=== PATIENT | female | born 2000 | race Caucasian/White ===

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

== ENCOUNTER 2020-01-08 12:06 | Emergency (ER) | payer OTHER, SELFPAY ==
[2020-01-08 12:28] VITALS: BP 107/64; PULSE 76; RESP 16; TEMP 36.7; O2SAT 99; BMI 18.5
--- NOTE | 2020-01-08 12:41 | XR_ITS ---
PROCEDURE: XR ANKLE RT MIN 3V CLINICAL INDICATION: fall, pain COMPARISON: ANKL2 ANKLE-LT-2 VIEWS from 10/03/2008 ANKR3 ANKLE-RT-3 VIEWS from 10/03/2008 XR FOOT RT MIN 3V from 01/08/2020 FINDINGS: No fracture, dislocation, lytic change, or blastic change evident. No significant degenerative change IMPRESSION: No acute findings. Dictated by: Yunior Mora MD 01/08/2020 13:35 Electronically signed by Yunior Mora MD in [place] 01/08/2020 13:35
--- NOTE | 2020-01-08 13:39 | HMH.EDLOEX ---
ED Disposition Clinical Impression: Ankle sprain and strain Disposition: Home, Self-Care Condition on Discharge: Good Instructions: Sprain Referrals: Heidi Regalado MD [Primary Care Provider] - - Critical Care Critical Care Time: No Attestation: On 01/08/20, the high probability of a clinically significant, sudden or life threatening deterioration of the following system(s) required my full and direct attention, intervention and personal management. The time I documented below is in addition to time spent performing reported procedures but includes the following listed in this critical care notation. Medical Decision Making - Medical Records Medical records reviewed: Yes: I reviewed the patient's medical records. - Erik Inquiry Pt receiving controlled substance: No Vital Signs: 01/08/20 12:28 Temperature 98.1 F Temperature Source Oral Pulse Rate [Left Radial] 76 Respiratory Rate 16 Blood Pressure [Left Arm] 107/64 L Blood Pressure Mean [Left Arm] 78 Blood Pressure Source [Left Arm] Automatic Cuff Blood Pressure Position [Left Arm] Sitting 02 Sat by Pulse Oximetry 99 Oxygen Delivery Method Room Air - Radiology Data #1 Image(s): Ankle Image Reviewed: Yes I reviewed the patient's radiology image w/the ED provider Preliminary Findings: Normal/NAD Lower Extremity Injury HPI - General Chief Complaint: Extremity Injury, Lower Stated Complaint: AO 01/06 fell injury to right ankle Time Seen by Provider: 01/08/20 13:00 Mode of Arrival: Wheelchair Source of Information: Patient Limitations: No Limitations Description of Symptoms (Recalled from ER Triage Doc. by RN): Pt c/o R ankle pain, pt reports she fell off a the side of step lastnight. - History of Present Illness complaint: ankle injury Onset (ago): day(s) Injury: Right: ankle, foot (Complaints of pain at the arch of the foot) Type of Injury: inversion Place: home Severity: moderate Severity scale (1-10): 4 Relieving factors: nothing Exacerbating factors: nothing Context: fall Associated symptoms: tingling, able to partially bear weight Other symptoms: none Treatments prior to arrival: cold therapy - Related Data Allergies Allergy/AdvReac Type Severity Reaction Status Date / Time No Known Allergies Allergy Verified 05/18/19 11:41 [facility] History - Hepatitis A Screen Drug use history?: No High risk sexual behaviors?: No History of sexually transmitted infection?: No Currently employed?: No Childcare worker?: No Do you have indoor plumbing?: Yes Do you have electricity?: Yes Attestation statement:: This patient has been screened for Hepatitis A risk factors. Medical History: Reports:: Renal Disease Denies:: Diabetes Mellitus Type 1, Diabetes Mellitus Type 2 Other Medical History: Reports: Other Comment: Rare Hip Disease Other Surgeries: Yes: Other (biopsy, kidney as a child) Amputation: No Fractures: No Comment: Kidney Bx - Social History Smoking Status: Never smoker Alcohol Intake: never Occupational Status: other Family Hx:: Diabetes (mom, grandmother), Asthma (sister) ROS Obtained: Yes All systems reviewed & no additional complaints - Constitutional Constitutional: Reports system reviewed and no additional complaints, except as docu - Eyes Eyes: Reports system reviewed and no additional complaints, except as docu - ENT Ears, Nose, Mouth, and Throat: Reports system reviewed and no additional complaints, except as docu - Cardiovascular Cardiovascular: Reports system reviewed and no additional complaints, except as docu - Respiratory Respiratory: Yes system reviewed and no additional complaints, except as docu - Gastrointestinal Gastrointestingal: Reports: system reviewed and no additional complaints, except as docu - Genitourinary Male Genitourinary: Reports system reviewed and no additional complaints, except as docu Female Genitourinary: Reports system reviewed and no additional complaints, e
[2020-01-08 14:17] VITALS: BP 122/67; PULSE 76; RESP 18; TEMP 36.7; O2SAT 98
== END 2020-01-08 14:17 | disposition home or self-care (01) ==
PROVIDERS: Emergency Provider Family Medicine; PCP Family Medicine
DX: S93.401A Sprain of unspecified ligament of right ankle, initial encounter (principal); W10.9XXA Fall (on) (from) unspecified stairs and steps, initial encounter; Y92.018 Other place in single-family (private) house as the place of occurrence of the external cause
CPT/HCPCS: 29515; 73610; 73630; 99282; 99283

== ENCOUNTER → 2020-02-28 12:14 | Outpatient (CLI) | payer OTHER, SELFPAY ==
[2020-02-28 13:11] LABS: Basophils # 0.1 K/mm3 (0-0.2); Basophils % 0.5 % (0.1-2.0); Eosinophils # 0.4 K/mm3 (0.0-0.4); Eosinophils % 3.3 % (0.1-12.0); Hematocrit 40.4 % (37.0-47.0); Lymphocytes # 2.6 K/mm3 (0.7-4.5); Lymphocytes % 24.8 % (10-50); Mean Corpuscular HGB Conc 34.6 g/dL (31.8-35.4); Mean Corpuscular Hemoglobin 32.3 pg (27.0-31.2); Mean Corpuscular Volume 93.2 fl (81-99); Mean Platelet Volume 7.8 fl (7.4-10.4); Monocytes # 0.5 K/mm3 (0.1-1.0); Monocytes % 4.9 % (1.7-9.3); Neutrophils % 66.4 % (37.0-80.0); Platelet Count 218 K/mm3 (142-424); Red Blood Count 4.33 M/mm3 (4.20-5.40); Red Cell Distribution Width 12.5 % (11.5-17.5); White Blood Count 10.5 K/mm3 (4.5-13.0)
[2020-02-28 13:20] LABS: Strep Scrn Group A (Rapid) Negative (Negative)
[2020-02-29 14:24] LABS: Covid-19 Nasal PCR Sendout Lex Not Detected
== END ==
PROVIDERS: PCP Family Medicine; Visit Provider Family Medicine
DX: Z20.828 Contact with and (suspected) exposure to other viral communicable diseases (principal)
CPT/HCPCS: 36415; 85025; 87430; U0004

== ENCOUNTER → 2020-03-15 15:27 | Outpatient (CLI) | payer OTHER, SELFPAY ==
[2020-03-15 17:14] LABS: Microscopic, Urine URINE MICROSCOPIC (MICROSCOPIC)
[2020-03-15 17:18] LABS: Basophils % 0.4 % (0.1-2.0); Eosinophils % 0.2 % (0.1-12.0); Hematocrit 39.5 % (37.0-47.0); Hemoglobin 13.6 g/dL (12.2-16.2); Lymphocytes # 1.5 K/mm3 (0.7-4.5); Lymphocytes % 18.5 % (10-50); Mean Corpuscular HGB Conc 34.6 g/dL (31.8-35.4); Mean Corpuscular Hemoglobin 31.2 pg (27.0-31.2); Mean Corpuscular Volume 90.3 fl (81-99); Mean Platelet Volume 7.5 fl (7.4-10.4); Monocytes # 0.7 K/mm3 (0.1-1.0); Monocytes % 8.9 % (1.7-9.3); Neutrophils % 72.1 % (37.0-80.0); Platelet Count 156 K/mm3 (142-424); Red Blood Count 4.37 M/mm3 (4.20-5.40); Red Cell Distribution Width 12.1 % (11.5-17.5); White Blood Count 8.3 K/mm3 (4.5-13.0)
[2020-03-15 17:22] LABS: Appearance,Urine CLEAR (Clear); Bilirubin,Urine Negative (Negative); Blood, Urine Negative (Negative); Color,Urine YELLOW (Yellow); Glucose,Urine (UA) Negative (Negative); Ketones,Urine Negative (Negative); Leukocyte Esterase,Urine Negative (Negative); Nitrate,Urine Negative (Negative); PH,Urine 6.5 (5.0-8.5); Protein,Urine TRACE (Negative)
[2020-03-15 17:25] LABS: Bacteria,Urine 1+ /lpf
[2020-03-15 17:47] LABS: Strep Scrn Group A (Rapid) Negative (Negative)
[2020-03-17 13:19] LABS: Covid-19 Nasal PCR Sendout Lex Not Detected
== END ==
PROVIDERS: PCP Family Medicine; Visit Provider Physician Assistant
DX: Z20.828 Contact with and (suspected) exposure to other viral communicable diseases (principal); N28.9 Disorder of kidney and ureter, unspecified; R94.4 Abnormal results of kidney function studies; K57.92 Diverticulitis of intestine, part unspecified, without perforation or abscess without bleeding
CPT/HCPCS: 81001; 85025; 87430; U0004

== ENCOUNTER → 2020-04-02 15:59 | Outpatient (CLI) | payer OTHER, SELFPAY ==
[2020-04-02 17:35] LABS: Basophils # 0.1 K/mm3 (0-0.2); Basophils % 0.9 % (0.1-2.0); Eosinophils # 0.1 K/mm3 (0.0-0.4); Eosinophils % 1.6 % (0.1-12.0); Hematocrit 38.6 % (37.0-47.0); Hemoglobin 12.6 g/dL (12.2-16.2); Lymphocytes # 2.2 K/mm3 (0.7-4.5); Lymphocytes % 33.4 % (10-50); Mean Corpuscular HGB Conc 32.6 g/dL (31.8-35.4); Mean Corpuscular Hemoglobin 30.7 pg (27.0-31.2); Mean Corpuscular Volume 94.1 fl (81-99); Mean Platelet Volume 7.9 fl (7.4-10.4); Monocytes # 0.3 K/mm3 (0.1-1.0); Neutrophils % 59.1 % (37.0-80.0); Platelet Count 263 K/mm3 (142-424); Red Blood Count 4.11 M/mm3 (4.20-5.40); Red Cell Distribution Width 12.1 % (11.5-17.5); White Blood Count 6.7 K/mm3 (4.5-13.0)
[2020-04-03 18:06] LABS: Microscopic, Urine URINE MICROSCOPIC (MICROSCOPIC)
[2020-04-03 18:46] LABS: Appearance,Urine CLEAR (Clear); Bilirubin,Urine Negative (Negative); Blood, Urine TRACE-I (Negative); Color,Urine YELLOW (Yellow); Glucose,Urine (UA) Negative (Negative); Ketones,Urine Negative (Negative); Leukocyte Esterase,Urine 1+ (Negative); Nitrate,Urine Negative (Negative); PH,Urine 6.5 (5.0-8.5); Protein,Urine Negative (Negative); Specific Gravity, Urine 1.015 (1.005-1.030); Urobilinogen,Urine 0.2 EU/dl (0.2)
[2020-04-03 19:41] LABS: Bacteria,Urine 1+ /lpf
== END ==
PROVIDERS: Visit Provider Nurse Practitioner Family
DX: R50.9 Fever, unspecified (principal)
CPT/HCPCS: 36415; 81001; 85025; 87077; 87086; 87088

== ENCOUNTER → 2020-05-25 15:20 | Outpatient (CLI) | payer OTHER, SELFPAY | PROVIDERS: Visit Provider Obstetrics & Gynecology | DX: N39.0 Urinary tract infection, site not specified (principal) | CPT/HCPCS: 87086; 87088; 87186 ==

== ENCOUNTER → 2020-11-01 15:53 | Outpatient (CLI) | payer OTHER, SELFPAY ==
[2020-11-01 16:32] LABS: Basophils # 0.1 K/mm3 (0-0.2); Basophils % 0.8 % (0.1-2.0); Eosinophils # 0.3 K/mm3 (0.0-0.4); Eosinophils % 2.9 % (0.1-12.0); Hematocrit 39.8 % (37.0-47.0); Hemoglobin 13.3 g/dL (12.2-16.2); Lymphocytes # 1.3 K/mm3 (0.7-4.5); Lymphocytes % 14.4 % (10-50); Mean Corpuscular HGB Conc 33.4 g/dL (31.8-35.4); Mean Corpuscular Hemoglobin 30.9 pg (27.0-31.2); Mean Corpuscular Volume 92.5 fl (81-99); Monocytes # 0.7 K/mm3 (0.1-1.0); Monocytes % 7.9 % (1.7-9.3); Neutrophils # 6.4 K/mm3 (1.8-7.8); Neutrophils % 74.1 % (37.0-80.0); Platelet Count 199 K/mm3 (142-424); Red Cell Distribution Width 12.1 % (11.5-17.5); White Blood Count 8.6 K/mm3 (4.5-13.0)
[2020-11-01 16:44] LABS: Strep Scrn Group A (Rapid) Negative (Negative)
== END ==
PROVIDERS: PCP Family Medicine; Visit Provider Physician Assistant
DX: Z20.822 Contact with and (suspected) exposure to COVID-19 (principal); J02.9 Acute pharyngitis, unspecified
CPT/HCPCS: 36415; 85025; 87430; U0003

== ENCOUNTER 2020-12-19 09:00 | Emergency (ER) | payer BC, SELFPAY ==
[2020-12-19 09:03] VITALS: BP 126/70; PULSE 73; RESP 14; TEMP 36.9; O2SAT 100; BMI 18.7
--- NOTE | 2020-12-19 09:15 | HMH.EDUTC ---
[facility] [place] Disposition Clinical Impression: Strep throat Disposition: Home, Self-Care Condition on Discharge: Good Instructions: DI for Strep Throat, Strep Throat Additional Instructions: *Monitor Temp, Over the counter Motrin or Tylenol as directed/as needed Tylenol every 4 hours and Motrin every 6 hours (as long as your family doctor has told you that you can take it) for fever or pain. and straight to ER if unable to lower temp less than 101.0 after medication given *Warm salt water gargles may help to soothe the throat *Throat Lozenges *Warm fluids like tea with honey may help to soothe the throat *Sleep elevated *Humidifier/Vaporizer *If you did not take Penicillin shot or was unable to, start taking antibiotic immediately and make sure that you take it for the FULL length of time although you should start to feel better in 24-48 hours *change toothbrush and toothpaste 24-48 hours after starting to take antibiotics so you do not reinfect yourself Monitor Temp. Tylenol and/or Ibuprofen as needed. ER if fever is no less than 101 despite alternating Tylenol and Ibuprofen * Encourage fluids, water, Gatorade, powerade, pedialyte if infant/toddler/or child *Cold fluids, popsicles and ice cream may feel good on his throat Follow up IMMEDIATELY for new or worsening symptoms or no Noticeable improvement over the next 48-72 hours. 911 for difficulty breathing or swallowing Prescriptions: Brompheniramine/Pseudoephed/Dm [Bromfed Dm Cough Syrup] 5 - 10 ml PO Q46H PRN #200 ml PRN Reason: Cough Transmission Status: Pending to [facility] Penicillin V Potassium 500 mg PO BID 10 Days #20 tab Transmission Status: Pending to [facility] Referrals: Heidi Regalado MD [Primary Care Provider] - As needed Forms: Work/School Release Time of Disposition: 09:21 Medical Decision Making - Erik Inquiry Pt receiving controlled substance: No Erik was queried for this patient: No Vital Signs: 12/19/20 09:03 Temperature 98.5 F Temperature Source Oral Pulse Rate [Right] 73 Respiratory Rate 14 Blood Pressure [Right Arm] 126/70 Blood Pressure Mean [Right Arm] 88 02 Sat by Pulse Oximetry 100 Oxygen Delivery Method Room Air - Lab Data Lab results reviewed: Yes: I reviewed the patient's lab results. [facility] [place] HPI - General Stated complaint: possible strep Time Seen by Provider: 12/19/20 09:15 Mode of Arrival: Ambulatory Source of Information: Patient Limitations: No Limitations Description of Symptoms (Recalled from Triage Doc. by RN): pt states she has a sore throat, blisters on her right tonsil, and a cough. HEENT Symptoms (Recalled from RN notes): Yes (sore throat and blisters on right tonsil) Resp Symptoms (Recalled from RN notes): No Skin Symptoms (Recalled from RN notes): No MS Symptoms (Recalled from RN notes): No Functional Status (Recalled from RN notes): na - History of Present Illness Provider Complaint: Patient states that she gets strep often and she has been having sore irritated throat and noticed she had some blisters on her tonsils on the right side and cough States this morning her throat was hurting worse so she came in after work to get checked - Related Data Previous Rx's Medication Instructions Recorded ciprofloxacin HCl 250 mg tablet 250 mg PO BID 5 Days #10 tab 05/25/20 Brompheniramine/Pseudoephed/Dm 5 - 10 ml PO Q46H PRN #200 ml 12/19/20 [Bromfed Dm Cough Syrup] Penicillin V Potassium 500 mg PO BID 10 Days #20 tab 12/19/20 Allergies Allergy/AdvReac Type Severity Reaction Status Date / Time No Known Allergies Allergy Verified 05/25/20 09:41 - Worker's Comp Is this a Worker's Comp case?: No [facility] History - Hepatitis A Screen Drug use history?: No High risk sexual behaviors?: No History of sexually transmitted infection?: No Currently employed?: No Childcare worker?: No Do you have indoor plumbing?: Yes Do you have electricity?: Yes Attes
[2020-12-19 09:22] VITALS: BP 126/70; PULSE 73; RESP 14; TEMP 36.9
[2020-12-19 09:42] LABS: UTC Strep Screen (Rapid) Positive (Negative)
== END 2020-12-19 09:25 | disposition home or self-care (01) ==
PROVIDERS: Emergency Provider Nurse Practitioner; PCP Family Medicine
DX: J02.0 Streptococcal pharyngitis (principal)
CPT/HCPCS: 87880; 99202; G0463

== ENCOUNTER 2021-03-30 09:21 | Emergency (ER) | payer BC, SELFPAY ==
[2021-03-30 09:45] VITALS: BP 113/77; PULSE 104; RESP 18; TEMP 37; O2SAT 97; BMI 19.1
--- NOTE | 2021-03-30 10:08 | HMH.EDUTC ---
[facility] [place] Clinical Impression: Exposure to COVID-19 virus Disposition: Home, Self-Care Condition on Discharge: Good Instructions: Preventing the Spread of Coronavirus Discharge Instructions Additional Instructions: Please continue to isolate for the remainder of 7 days from quarantine. If negative, may return to work on Thursday. Referrals: Heidi Regalado MD [Primary Care Provider] - Time of Disposition: 10:09 Medical Decision Making - Erik Inquiry Pt receiving controlled substance: No Vital Signs: 03/30/21 09:45 Temperature 98.6 F Temperature Source Oral Pulse Rate [Right Brachial] 104 H Respiratory Rate 18 Blood Pressure [Right Arm] 113/77 Blood Pressure Mean [Right Arm] 89 Blood Pressure Source [Right Arm] Automatic Cuff Blood Pressure Position [Right Arm] Sitting 02 Sat by Pulse Oximetry 97 Oxygen Delivery Method Room Air Orders (Tests/Meds): ORDERS Category Date Time Status Covid-19 Nasal PCR ([facility]) Routine Lab 03/30/21 10:03 Ordered [facility] [place] HPI - General Stated complaint: exposure to covid Time Seen by Provider: 03/30/21 10:08 Mode of Arrival: Ambulatory Source of Information: Patient Limitations: No Limitations Description of Symptoms (Recalled from Triage Doc. by RN): COVID TEST D/T EXPOSURE ON THURSDAY HEENT Symptoms (Recalled from RN notes): No Resp Symptoms (Recalled from RN notes): No Skin Symptoms (Recalled from RN notes): No MS Symptoms (Recalled from RN notes): No Functional Status (Recalled from RN notes): WNL - History of Present Illness Provider Complaint: Patient was exposed to COVID19 5 days ago. No symptoms at this time. Onset (ago): day(s) (5) Relieving factors: none Exacerbating factors: none Associated symptoms: denies other symptoms Treatments prior to arrival: none - Related Data Home Medications Medication Instructions Recorded Confirmed etonogestrel 68 mg subdermal SUBDERMAL 12/21/20 implant Previous Rx's Medication Instructions Recorded Penicillin V Potassium 500 mg PO BID 10 Days #20 tab 12/19/20 Allergies Allergy/AdvReac Type Severity Reaction Status Date / Time No Known Allergies Allergy Verified 12/21/20 09:29 - Worker's Comp Is this a Worker's Comp case?: No [facility] History - Hepatitis A Screen Drug use history?: No High risk sexual behaviors?: No History of sexually transmitted infection?: No Currently employed?: No Childcare worker?: No Do you have indoor plumbing?: Yes Do you have electricity?: Yes Attestation statement:: This patient has been screened for Hepatitis A risk factors. I have reviewed the patient's past medical history: Yes Medical History: Reports:: Renal Disease Denies:: Diabetes Mellitus Type 1, Diabetes Mellitus Type 2 Other Medical History: Reports: Other Comment: Rare Hip Disease Other Surgeries: Yes: Other Amputation: No Fractures: No Comment: Kidney Bx - Social History Smoking Status: Current every day smoker Alcohol Intake: never Substance Use Type: denies use Occupational Status: employed Family Hx:: Diabetes, Asthma ROS Obtained: Yes All systems reviewed & no additional complaints Physical Exam - General General appearance: alert, in no apparent distress - Eye Eye exam: Present: PERRL - ENT ENT exam: Present: normal oropharynx, TM's normal bilaterally - Neck Neck exam: Present: normal inspection. Absent: lymphadenopathy - Chest Chest inspection: Present: normal inspection, symmetric chest wall rise - Respiratory Respiratory exam: Present: normal lung sounds bilaterally - Cardiovascular Cardiovascular exam: Present: regular rate, normal rhythm - Neurological Exam Neurological exam: Present: alert, oriented X3 - Psychiatric Psychiatric exam: Present: normal affect, normal mood - Skin Skin exam: Present: warm, dry, intact
[2021-03-30 10:09] VITALS: BP 113/77; PULSE 104; RESP 18; TEMP 37; O2SAT 97
== END 2021-03-30 10:18 | disposition home or self-care (01) ==
PROVIDERS: Emergency Provider Physician Assistant; PCP Family Medicine
DX: Z20.822 Contact with and (suspected) exposure to COVID-19 (principal)
CPT/HCPCS: 99202; C9803; G0463; U0003; U0005

== ENCOUNTER 2021-05-26 10:49 | Emergency (ER) | payer BC, SELFPAY ==
[2021-05-26 11:52] VITALS: BP 120/70; PULSE 70; RESP 18; TEMP 36.9; O2SAT 100; BMI 18.7
[2021-05-26 11:53] LABS: Apearance,Urine Clear (Clear); Color,Urine Yellow (Yellow); PH,Urine 5.5 (5.0-8.5)
[2021-05-26 11:54] LABS: Glucose,Urine (UA) Negative (Negative); Ketones,Urine Negative (Negative); Protein,Urine Negative (Negative)
[2021-05-26 11:55] LABS: Bilirubin,Urine Negative (Negative); Blood, Urine Negative (Negative); Urobilinogen,Urine 0.2 EU/dl (0.2)
--- NOTE | 2021-05-26 11:55 | HMH.EDUTC ---
[facility] [place] Disposition Clinical Impression: Athletes foot Qualifiers: Laterality: unspecified laterality Qualified Code(s): B35.3 - Tinea pedis UTI (urinary tract infection) Qualifiers: Urinary tract infection type: site unspecified Hematuria presence: with hematuria Qualified Code(s): N39.0 - Urinary tract infection, site not specified Disposition: Home, Self-Care Condition on Discharge: Good Instructions: DI for Urinary Tract Infection (UTI), DI for Athlete's Foot, Clotrimazole Topical Additional Instructions: Apply the clotrimazole to the affected area on your foot. Take the bactrim as directed. Follow up with your primary care physician. Follow up with podiatry if your symptoms continue. I put in a referral but you would need to call and make an appointment. Her office number will be on this paperwork. GO TO THE ER FOR ANY WORSENING SYMPTOMS OR CONCERNS. Prescriptions: Sulfamethoxazole/Trimethoprim [Bactrim DS tablet] 1 each PO BID 7 Days #14 tab Transmission Status: Received by [facility] Clotrimazole 1 applicatio TP BID 14 Days #15 gm Transmission Status: Received by [facility] Referrals: Heidi Regalado MD [Primary Care Provider] - Time of Disposition: 12:14 Medical Decision Making - Medical Records Medical records reviewed: No: I reviewed the patient's medical records. - Erik Inquiry Pt receiving controlled substance: No Vital Signs: 05/26/21 11:52 05/26/21 12:18 Temperature 98.4 F 98.4 F Temperature Source Oral Pulse Rate 70 Pulse Rate [Right Brachial] 70 Respiratory Rate 18 70 H Blood Pressure 120/70 Blood Pressure [Right Arm] 120/70 Blood Pressure Mean [Right Arm] 86 Blood Pressure Source [Right Arm] Automatic Cuff Blood Pressure Position [Right Arm] Sitting 02 Sat by Pulse Oximetry 100 Oxygen Delivery Method Room Air - Lab Data Lab results reviewed: Yes: I reviewed the patient's lab results. Lab Results 05/26/21 11:48: Urine Color Yellow, Urine Appearance Clear, Urine pH 5.5, Ur Specific [place] 1.010, Urine Protein Negative, Urine Glucose (UA) Negative, Urine Ketones Negative, Urine Blood Negative, Urine Nitrate Negative, Urine Bilirubin Negative, Urine Urobilinogen 0.2, Ur Leukocyte Esterase Negative Orders (Tests/Meds): ORDERS Category Date Time Status Urine Culture Stat Micro 05/25/21 12:[address] [facility] [place] HPI - General Stated complaint: blister/rash lt foot, possible kidney infection Time Seen by Provider: 05/26/21 11:55 - History of Present Illness Provider Complaint: She c/o irritation between her toes on her right foot. She has itching and the skin has broke open in places. She also c/o dysuria for the past 5 days. She gets uti's occasionally and she feels like that is what's going on now. - Related Data Home Medications Medication Instructions Recorded Confirmed etonogestrel 68 mg subdermal SUBDERMAL 12/21/20 implant Previous Rx's Medication Instructions Recorded Penicillin V Potassium 500 mg PO BID 10 Days #20 tab 12/19/20 Clotrimazole 1 applicatio TP BID 14 Days #15 gm 05/26/21 Sulfamethoxazole/Trimethoprim 1 each PO BID 7 Days #14 tab 05/26/21 [Bactrim DS tablet] Allergies Allergy/AdvReac Type Severity Reaction Status Date / Time No Known Allergies Allergy Verified 12/21/20 09:29 [facility] [place] History - Hepatitis A Screen Attestation statement:: This patient has been screened for Hepatitis A risk factors. I have reviewed the patient's past medical history: Yes Medical History: Reports:: Renal Disease Denies:: Diabetes Mellitus Type 1, Diabetes Mellitus Type 2 Other Medical History: Reports: Other Comment: Rare Hip Disease Other Surgeries: Yes: Other Amputation: No Fractures: No Comment: Kidney Bx - Social History Smoking Status: Current every day smoker Alcohol Intake: never Substance Use Type: denies use Occupational Status: employed Family Hx:: Diabetes, Asthma ROS Ob
[2021-05-26 11:56] LABS: UTC Leukocyte Esterase,Urine Negative (Negative); UTC Nitrate,Urine Negative (Negative)
[2021-05-26 12:18] VITALS: BP 120/70; PULSE 70; RESP 70; TEMP 36.9
== END 2021-05-26 12:18 | disposition home or self-care (01) ==
PROVIDERS: Emergency Provider Nurse Practitioner Family; PCP Family Medicine
DX: B35.3 Tinea pedis (principal); N39.0 Urinary tract infection, site not specified; F17.210 Nicotine dependence, cigarettes, uncomplicated
CPT/HCPCS: 81003; 87086; 99202; G0463

== ENCOUNTER 2021-06-01 18:46 | Emergency (ER) | payer BC, SELFPAY ==
[2021-06-01 18:50] VITALS: BP 121/67; PULSE 91; RESP 20; TEMP 36.8; O2SAT 97; BMI 20.2
--- NOTE | 2021-06-01 19:13 | HMH.EDUTC ---
[facility] [place] Disposition Clinical Impression: Dental infection Disposition: Home, Self-Care Condition on Discharge: Good Instructions: DI for Tooth Abscess, Tooth Abscess, DI for Fever (Symptom) -- Adult Additional Instructions: take medication as prescribed Follow up with Dentist for further evaluation and treatment Return if needed Over the counter Motrin and/or Tylenol for fever and pain Straight to ER if any life threatening symptoms Prescriptions: cephALEXin [cephALEXin 500mg capsule*] 500 mg PO TID 7 Days #21 cap Transmission Status: Pending to [facility] Referrals: Heidi Regalado MD [Primary Care Provider] - As needed Forms: Work/School Release Time of Disposition: 19:32 Medical Decision Making - Erik Inquiry Pt receiving controlled substance: No Erik was queried for this patient: No Vital Signs: 06/01/21 18:50 Temperature 98.3 F Temperature Source Oral Pulse Rate [Left Brachial] 91 H Respiratory Rate 20 Blood Pressure [Left Arm] 121/67 Blood Pressure Mean [Left Arm] 85 Blood Pressure Source [Left Arm] Automatic Cuff Blood Pressure Position [Left Arm] Sitting 02 Sat by Pulse Oximetry 97 Oxygen Delivery Method Room Air [facility] [place] HPI - General Stated complaint: fever, toothache, nausea Time Seen by Provider: 06/01/21 19:13 Mode of Arrival: Ambulatory Source of Information: Patient Limitations: No Limitations Description of Symptoms (Recalled from Triage Doc. by RN): PATIENT C/O HEADACHE, FEVER, AND RIGHT SIDE TOOTHACHE THAT STARTED LAST NIGHT HEENT Symptoms (Recalled from RN notes): Yes Resp Symptoms (Recalled from RN notes): No Skin Symptoms (Recalled from RN notes): No MS Symptoms (Recalled from RN notes): No Functional Status (Recalled from RN notes): WNL - History of Present Illness Provider Complaint: Patient state that she has been having pain in her tooth on the right lower back tooth for several days and thinks she is getting infected States that she has been having a little fever States that she has been on Bactrim for her feet but she is almost out and today she had a fever and work is making her get a COVID test before she can return - Related Data Home Medications Medication Instructions Recorded Confirmed etonogestrel 68 mg subdermal SUBDERMAL 12/21/20 implant Previous Rx's Medication Instructions Recorded Penicillin V Potassium 500 mg PO BID 10 Days #20 tab 12/19/20 Clotrimazole 1 applicatio TP BID 14 Days #15 gm 05/26/21 Sulfamethoxazole/Trimethoprim 1 each PO BID 7 Days #14 tab 05/26/21 [Bactrim DS tablet] cephALEXin [cephALEXin 500mg 500 mg PO TID 7 Days #21 cap 06/01/21 capsule*] Allergies Allergy/AdvReac Type Severity Reaction Status Date / Time No Known Allergies Allergy Verified 12/21/20 09:29 - Worker's Comp Is this a Worker's Comp case?: No [facility] History - Hepatitis A Screen Drug use history?: No High risk sexual behaviors?: No History of sexually transmitted infection?: No Currently employed?: No Childcare worker?: No Do you have indoor plumbing?: Yes Do you have electricity?: Yes Attestation statement:: This patient has been screened for Hepatitis A risk factors. I have reviewed the patient's past medical history: Yes Medical History: Reports:: Renal Disease Denies:: Diabetes Mellitus Type 1, Diabetes Mellitus Type 2 Other Medical History: Reports: Other Comment: Rare Hip Disease Other Surgeries: Yes: Other Amputation: No Fractures: No Comment: Kidney Bx - Social History Smoking Status: Current every day smoker Alcohol Intake: never Substance Use Type: denies use Occupational Status: other Family Hx:: Diabetes, Asthma ROS Obtained: Yes All systems reviewed & no additional complaints, Yes Systems reviewed as appropriate & no additional complaints - Constitutional Constitutional: Reports system reviewed and no additional complaints, except as docu, Reports fever(s), Reports headache(s) - ENT Ears,
[2021-06-01 19:34] VITALS: BP 121/67; PULSE 91; RESP 20; TEMP 36.8; O2SAT 97
== END 2021-06-01 19:45 | disposition home or self-care (01) ==
PROVIDERS: Emergency Provider Nurse Practitioner; PCP Family Medicine
DX: K04.7 Periapical abscess without sinus (principal)
CPT/HCPCS: 99202; C9803; G0463; U0003; U0005

== ENCOUNTER → 2021-08-20 10:53 | Outpatient (CLI) | payer BC, SELFPAY ==
[2021-08-21 07:12] LABS: Covid-19 Nasal PCR Sendout Lex NOT DETECTED
== END ==
PROVIDERS: PCP Family Medicine; Visit Provider Nurse Practitioner
DX: Z20.822 Contact with and (suspected) exposure to COVID-19 (principal)
CPT/HCPCS: C9803; U0004; U0005

== ENCOUNTER → 2021-08-22 10:05 | Outpatient (CLI) | payer BC, SELFPAY ==
[2021-08-22 10:40] LABS: Microscopic, Urine URINE MICROSCOPIC (MICROSCOPIC)
[2021-08-22 10:48] LABS: Appearance,Urine CLEAR (Clear); Bilirubin,Urine Negative (Negative); Blood, Urine Negative (Negative); Color,Urine YELLOW (Yellow); Glucose,Urine (UA) Negative (Negative); Ketones,Urine Negative (Negative); Leukocyte Esterase,Urine Negative (Negative); Nitrate,Urine Negative (Negative); Protein,Urine 2+ (Negative); Specific Gravity, Urine 1.025 (1.005-1.030); Urobilinogen,Urine 0.2 EU/dl (0.2)
[2021-08-22 10:49] LABS: Basophils % 0.6 % (0.1-2.0); Eosinophils # 0.1 K/mm3 (0.0-0.4); Hematocrit 41.3 % (37.0-47.0); Hemoglobin 14.1 g/dL (12.2-16.2); Lymphocytes # 0.8 K/mm3 (0.7-4.5); Lymphocytes % 13.6 % (10-50); Mean Corpuscular Hemoglobin 31.2 pg (27.0-31.2); Mean Corpuscular Volume 91.7 fl (81-99); Mean Platelet Volume 7.7 fl (7.4-10.4); Monocytes # 0.4 K/mm3 (0.1-1.0); Monocytes % 7.4 % (1.7-9.3); Neutrophils # 4.4 K/mm3 (1.8-7.8); Neutrophils % 77.3 % (37.0-80.0); Platelet Count 225 K/mm3 (142-424); Red Blood Count 4.51 M/mm3 (4.20-5.40); White Blood Count 5.7 K/mm3 (4.5-13.0)
[2021-08-22 10:53] LABS: Strep Scrn Group A (Rapid) Negative (Negative)
[2021-08-22 11:24] LABS: Bacteria,Urine Trace /lpf; Mucus,Urine 1+ /lpf
[2021-08-22 11:29] LABS: Chloride 103 mmol/L (98-107); Potassium 4.1 mmoL/L (3.5-5.1); Sodium 136 mmol/L (136-145)
[2021-08-22 11:31] LABS: Alanine Aminotransferase 21 U/L (12-78); Aspartate Amino Transferase 30 U/L (14-36); Blood Urea Nitrogen 6 mg/dl (7-17); Estimated Glomerular Filt Rate 107 ml/min (>60); GFR (African American) 129 ML/MIN (>60)
[2021-08-22 11:32] LABS: Albumin Level 4.6 g/dl (3.5-5.0); Alkaline Phosphatase 85 U/L (38-126); Anion Gap 10.1 mEq/L (5-15); Bilirubin,Total 0.3 mg/dl (0.2-1.3); Calcium 8.4 mg/dl (8.4-10.2); Carbon Dioxide 27 mmol/L (22.0-30.0); Globulin 2.3 g/dL (1.3-3.2); Glucose 78 mg/dl (74-100); Total Protein,Serum 6.9 g/dl (6.3-8.2)
== END ==
PROVIDERS: PCP Family Medicine; Visit Provider Physician Assistant
DX: U07.1 COVID-19 (principal); J02.9 Acute pharyngitis, unspecified
CPT/HCPCS: 36415; 80053; 81001; 85025; 87430; C9803; U0003; U0005

== ENCOUNTER → 2021-10-11 13:47 | Outpatient (CLI) | payer BC, SELFPAY ==
--- NOTE | 2021-10-11 13:50 | XR_ITS ---
FINAL REPORT CLINICAL HISTORY: LT MEDIAL GREAT TOE PAIN FINDINGS: LEFT GREAT TOE Three views of the left great toe were obtained. There is no acute fracture or dislocation. The joint spaces are intact. There is no soft tissue abnormality. IMPRESSION: No acute fracture. Reviewed, Interpreted and Dictated by Floyd Browning III, MD Transcribed by Trupti Eisenberg Authenticated by Floyd Browning III, MD on 10/11/2021 04:03:29 PM [facility]
== END ==
PROVIDERS: PCP Family Medicine; Visit Provider Physician Assistant
DX: M79.675 Pain in left toe(s) (principal)
CPT/HCPCS: 73660

== ENCOUNTER 2021-12-01 01:24 | Emergency (ER) | payer BC, SELFPAY ==
[2021-12-01 01:38] VITALS: BP 136/79; PULSE 110; RESP 18; TEMP 36.7; O2SAT 100; BMI 21.4
--- NOTE | 2021-12-01 01:52 | HMH.EDUPEXT ---
ED Disposition Clinical Impression: Tenosynovitis Disposition: Home, Self-Care Condition on Discharge: Good Instructions: DI for Tenosynovitis Additional Instructions: wear splint and use meds and see pcp for follow up Prescriptions: predniSONE [Prednisone 20mg Tab] 20 mg PO BID #10 tab Transmission Status: Pending to [facility] Referrals: Heidi Regalado MD [Primary Care Provider] - - Critical Care Critical Care Time: No Attestation: On 12/01/21, the high probability of a clinically significant, sudden or life threatening deterioration of the following system(s) required my full and direct attention, intervention and personal management. The time I documented below is in addition to time spent performing reported procedures but includes the following listed in this critical care notation. Medical Decision Making - Medical Records Medical records reviewed: Yes: I reviewed the patient's medical records. - Erik Inquiry Pt receiving controlled substance: No Vital Signs: 12/01/21 01:38 Temperature 98.1 F Temperature Source Oral Pulse Rate [Apical] 110 H Respiratory Rate 18 Blood Pressure [Right Arm] 136/79 Blood Pressure Mean [Right Arm] 98 Blood Pressure Source [Right Arm] Automatic Cuff Blood Pressure Position [Right Arm] Sitting 02 Sat by Pulse Oximetry 100 Oxygen Delivery Method Room Air - Lab Data Lab results reviewed: Yes: I reviewed the patient's lab results. Orders (Tests/Meds): ED MEDICATIONS Generic Name Dose Route Start Last Admin Trade Name Freq PRN Reason Stop Dose Admin Prednisone 40 mg 12/01/21 01:51 Prednisone 20mg Tab PO 12/01/21 01:52 ONCE ONE ORDERS Category Date Time Status XR forearm RT 2V Stat Exams 12/01/21 01:45 Stop Req XR hand RT 2V Stat Exams 12/01/21 01:45 Stop Req XR wrist RT min 3V Stat Exams 12/01/21 01:44 Stop Req Medical Decision Narrative: hx and exam consistent with tenosynovitis Upper Extremity HPI - General Chief Complaint: Extremity Injury, Upper Stated Complaint: Right wrist pain Time Seen by Provider: 12/01/21 01:53 Mode of Arrival: Ambulatory Source of Information: Patient, Medical Record Limitations: No Limitations Description of Symptoms (Recalled from ER Triage Doc. by RN): Patient states that she has been having right wrist pain with swelling since Thursday. States the pain came on gradually without known injury. Descrbies the pain as a stabbing/aching that hurts when she moves her wrist. - History of Present Illness HPI narrative: progressive rt wrist pain and swelling over the last few dys w/o trauma MD complaint: injury to: right, wrist Onset (ago): day(s) Other Extremity Injury: Right: wrist Handedness: right Severity: moderate Associated symptoms: denies other symptoms - Related Data Home Medications Medication Instructions Recorded Confirmed etonogestrel 68 mg subdermal 68 mg SUBDERMAL DAILY 12/21/20 12/01/21 implant Previous Rx's Medication Instructions Recorded predniSONE [Prednisone 20mg 20 mg PO BID #10 tab 12/01/21 Tab] Allergies Allergy/AdvReac Type Severity Reaction Status Date / Time ibuprofen AdvReac Verified 12/01/21 01:49 [facility] History - Hepatitis A Screen Attestation statement:: This patient has been screened for Hepatitis A risk factors. I have reviewed the patient's past medical history: Yes Medical History: Reports:: Renal Disease Denies:: Diabetes Mellitus Type 1, Diabetes Mellitus Type 2 Other Medical History: Reports: Other Comment: Rare Hip Disease Other Surgeries: Yes: Other Amputation: No Fractures: No Comment: Kidney Bx - Social History Smoking Status: Current every day smoker Alcohol Intake: never Substance Use Type: denies use Occupational Status: other Family Hx:: Diabetes, Asthma ROS Obtained: Yes All systems reviewed & no additional complaints - Constitutional Constitutional: Denies fever(s)
[2021-12-01 02:04] VITALS: BP 135/75; PULSE 93; RESP 18; TEMP 36.8; O2SAT 99
== END 2021-12-01 02:07 | disposition home or self-care (01) ==
PROVIDERS: Emergency Provider Emergency Medicine; PCP Family Medicine
DX: M65.831 Other synovitis and tenosynovitis, right forearm (principal); F17.210 Nicotine dependence, cigarettes, uncomplicated
CPT/HCPCS: 99283

== ENCOUNTER 2021-12-13 14:09 | Emergency (ER) | payer BC, SELFPAY ==
[2021-12-13 14:10] VITALS: BP 120/86; PULSE 89; RESP 19; TEMP 36.9; O2SAT 98; BMI 19.3
--- NOTE | 2021-12-13 14:42 | HMH.EDUTC ---
[facility] [place] Disposition Clinical Impression: Otitis media Qualifiers: Otitis media type: suppurative Chronicity: acute Laterality: bilateral Recurrence: non-recurrent Spontaneous tympanic membrane rupture: without spontaneous rupture Qualified Code(s): H66.003 - Acute suppurative otitis media without spontaneous rupture of ear drum, bilateral Left otitis externa Qualifiers: Otitis externa type: unspecified type Chronicity: acute Qualified Code(s): H60.502 - Unspecified acute noninfective otitis externa, left ear Disposition: Home, Self-Care Condition on Discharge: Good Instructions: How to Instill Ear Drops, Otitis Externa, Middle Ear Infection Additional Instructions: Drink plenty of fluids. Take tylenol or ibuprofen for pain or fever. Use the medications as directed. Follow up with your regular doctor. GO TO THE ER FOR ANY WORSENING SYMPTOMS Follow up with your primary care physician in around 1 week to have the ear rechecked. Prescriptions: Amoxicillin [Amoxicillin 875MG Tab] 875 mg PO Q12H #20 tab Transmission Status: Received by [facility] Ciprofloxacin HCl/Dexameth [Cipro 0.3%-Dex 0.1% Otic Susp 7.5mL] 2 drops OT BID 7 Days #1 ml Transmission Status: Received by [facility] predniSONE [Deltasone 10mg tablet] 10 mg PO BID 3 Days #6 tab Transmission Status: Received by [facility] Referrals: Heidi Regalado MD [Primary Care Provider] - Forms: Work/School Release Time of Disposition: 14:47 Medical Decision Making - Medical Records Medical records reviewed: No: I reviewed the patient's medical records. - Erik Inquiry Pt receiving controlled substance: No Vital Signs: 12/13/21 14:10 12/13/21 14:50 Temperature 98.4 F 98.4 F Temperature Source Oral Pulse Rate 89 Pulse Rate [Right Brachial] 89 Respiratory Rate 19 19 Blood Pressure 120/86 Blood Pressure [Right Arm] 120/86 Blood Pressure Mean [Right Arm] 97 Blood Pressure Source [Right Arm] Automatic Cuff Blood Pressure Position [Right Arm] Sitting 02 Sat by Pulse Oximetry 98 Oxygen Delivery Method Room Air [facility] [place] HPI - General Stated complaint: lt ear pain Time Seen by Provider: 12/13/21 14:42 Mode of Arrival: Ambulatory Source of Information: Patient Limitations: No Limitations Description of Symptoms (Recalled from Triage Doc. by RN): PATIENT C/O LEFT EAR PAIN SINCE THIS MORNING HEENT Symptoms (Recalled from RN notes): Yes Resp Symptoms (Recalled from RN notes): No Skin Symptoms (Recalled from RN notes): No MS Symptoms (Recalled from RN notes): No Functional Status (Recalled from RN notes): WNL - History of Present Illness Provider Complaint: She has had left ear pain for the past 2 days. - Related Data Home Medications Medication Instructions Recorded Confirmed etonogestrel 68 mg subdermal 68 mg SUBDERMAL ONCE 12/21/20 12/13/21 implant Previous Rx's Medication Instructions Recorded Amoxicillin [Amoxicillin 875MG 875 mg PO Q12H #20 tab 12/13/21 Tab] Ciprofloxacin HCl/Dexameth [Cipro 2 drops OT BID 7 Days #1 ml 12/13/21 0.3%-Dex 0.1% Otic Susp 7.5mL] predniSONE [Deltasone 10mg tablet] 10 mg PO BID 3 Days #6 tab 12/13/21 Allergies Allergy/AdvReac Type Severity Reaction Status Date / Time ibuprofen AdvReac Verified 12/01/21 01:49 - Worker's Comp Is this a Worker's Comp case?: No [facility] [place] History - Hepatitis A Screen Attestation statement:: This patient has been screened for Hepatitis A risk factors. Medical History: Reports:: Renal Disease Denies:: Diabetes Mellitus Type 1, Diabetes Mellitus Type 2 Other Medical History: Reports: Other Comment: Rare Hip Disease Other Surgeries: Yes: Other Amputation: No Fractures: No Comment: Kidney Bx - Social History Smoking Status: Current every day smoker Alcohol Intake: never Substance Use Type: denies use Occupational Status: other Family Hx:: Diabetes, Asthma ROS Ob
[2021-12-13 14:50] VITALS: BP 120/86; PULSE 89; RESP 19; TEMP 36.9; O2SAT 98
== END 2021-12-13 14:54 | disposition home or self-care (01) ==
PROVIDERS: Emergency Provider Nurse Practitioner Family; PCP Family Medicine
DX: H66.003 Acute suppurative otitis media without spontaneous rupture of ear drum, bilateral (principal); H60.502 Unspecified acute noninfective otitis externa, left ear
CPT/HCPCS: 99212; G0463

== ENCOUNTER → 2022-05-06 16:12 | Outpatient (CLI) | payer BC, SELFPAY ==
[2022-05-06 18:39] LABS: HCG,Quantitative 500 mIU/ml (0-5.42)
== END ==
PROVIDERS: PCP Family Medicine; Visit Provider Obstetrics & Gynecology
DX: N92.6 Irregular menstruation, unspecified (principal)
CPT/HCPCS: 36415; 84702

== ENCOUNTER → 2022-05-13 16:49 | Outpatient (CLI) | payer BC, SELFPAY ==
[2022-05-13 18:19] LABS: Basophils # 0.1 K/mm3 (0-0.2); Basophils % 0.4 % (0.1-2.0); Eosinophils % 0.1 % (0.1-12.0); Hematocrit 38.1 % (37.0-47.0); Hemoglobin 12.7 g/dL (12.2-16.2); Lymphocytes # 1.1 K/mm3 (0.7-4.5); MANUAL DIFFERENTIAL MANUAL DIFFERENTIAL (MANUAL DIFF); Mean Corpuscular HGB Conc 33.2 g/dL (31.8-35.4); Mean Corpuscular Hemoglobin 30.6 pg (27.0-31.2); Mean Corpuscular Volume 92.2 fl (81-99); Mean Platelet Volume 8.1 fl (7.4-10.4); Monocytes # 0.9 K/mm3 (0.1-1.0); Monocytes % 5.1 % (1.7-9.3); Neutrophils % 88.4 % (37.0-80.0); Platelet Count 321 K/mm3 (142-424); Red Blood Count 4.13 M/mm3 (4.20-5.40); White Blood Count 18.1 K/mm3 (4.8-10.8)
[2022-05-13 19:20] LABS: Eosinophils % 1 % (0-3); Lymphocytes % 9 % (10-50); Monocytes % 2 % (2-9); Neutrophils % 88 % (42-76); Platelet Estimate Normal; RBC Morphology Normal; Total Cells Counted 100
[2022-05-13 23:08] LABS: Strep Scrn Group A (Rapid) Negative (Negative)
== END ==
PROVIDERS: PCP Family Medicine; Visit Provider Nurse Practitioner Family
DX: Z20.822 Contact with and (suspected) exposure to COVID-19 (principal)
CPT/HCPCS: 36415; 85007; 85025; 87275; 87276; 87430; C9803; U0003; U0005

== ENCOUNTER → 2022-06-03 12:56 | Outpatient (CLI) | payer BC, SELFPAY ==
[2022-06-03 13:16] LABS: Coronavirus 19, PCR Not Detected (NotDetected); Influenza A, PCR Not Detected (NotDetected); Influenza B, PCR Not Detected (NotDetected)
[2022-06-03 13:22] LABS: Basophils # 0.1 K/mm3 (0-0.2); Basophils % 1.2 % (0.1-2.0); Eosinophils # 0.3 K/mm3 (0.0-0.4); Hematocrit 41.2 % (37.0-47.0); Hemoglobin 13.7 g/dL (12.2-16.2); Lymphocytes # 1.9 K/mm3 (0.7-4.5); Lymphocytes % 18.9 % (10-50); Mean Corpuscular HGB Conc 33.2 g/dL (31.8-35.4); Mean Corpuscular Hemoglobin 30.6 pg (27.0-31.2); Mean Corpuscular Volume 92.1 fl (81-99); Mean Platelet Volume 7.7 fl (7.4-10.4); Monocytes % 9.7 % (1.7-9.3); Neutrophils # 6.9 K/mm3 (1.8-7.8); Neutrophils % 67.1 % (37.0-80.0); Platelet Count 330 K/mm3 (142-424); Red Blood Count 4.47 M/mm3 (4.20-5.40); Red Cell Distribution Width 12.5 % (11.5-17.5); White Blood Count 10.2 K/mm3 (4.8-10.8)
[2022-06-03 13:50] LABS: Strep Scrn Group A (Rapid) Negative (Negative)
== END ==
PROVIDERS: PCP Family Medicine; Visit Provider Nurse Practitioner Family
DX: Z20.822 Contact with and (suspected) exposure to COVID-19 (principal)
CPT/HCPCS: 36415; 85025; 87430; C9803; U0003; U0005

== ENCOUNTER → 2022-06-03 17:15 | Outpatient (CLI) | payer BC, SELFPAY ==
[2022-06-03 17:42] LABS: Barbiturates Screen,Urine Negative ng/ml (<200)
[2022-06-03 17:43] LABS: Benzodiazepines Screen,Urine Negative ng/ml (<200)
[2022-06-03 17:44] LABS: Cannabinoid Screen,Urine Negative ng/ml (<50); Cocaine Screen,Urine Negative ng/ml (<300)
[2022-06-03 17:45] LABS: Methadone Screen,Urine Negative ng/ml (<300)
[2022-06-03 17:46] LABS: Opiate Screen,Urine Negative ng/ml (<300)
[2022-06-03 17:49] LABS: Phencyclidine Screen,Urine Negative ng/ml (<25)
[2022-06-03 17:52] LABS: Amphetamine/Metha Screen,Urine Negative ng/ml (<1000)
== END ==
PROVIDERS: Visit Provider Obstetrics & Gynecology
DX: Z34.90 Encounter for supervision of normal pregnancy, unspecified, unspecified trimester (principal)
CPT/HCPCS: 80305; 87086

== ENCOUNTER → 2022-06-24 13:55 | Outpatient (CLI) | payer BC, SELFPAY ==
[2022-06-24 15:29] LABS: Basophils # 0.1 K/mm3 (0-0.2); Basophils % 0.6 % (0.1-2.0); Eosinophils # 0.1 K/mm3 (0.0-0.4); Eosinophils % 0.6 % (0.1-12.0); Hematocrit 37.3 % (37.0-47.0); Hemoglobin 12.4 g/dL (12.2-16.2); Lymphocytes # 2.7 K/mm3 (0.7-4.5); Lymphocytes % 19.9 % (10-50); Mean Corpuscular HGB Conc 33.1 g/dL (31.8-35.4); Mean Corpuscular Hemoglobin 30.2 pg (27.0-31.2); Mean Corpuscular Volume 91.1 fl (81-99); Mean Platelet Volume 8.3 fl (7.4-10.4); Monocytes # 0.7 K/mm3 (0.1-1.0); Monocytes % 5.4 % (1.7-9.3); Neutrophils % 73.5 % (37.0-80.0); Platelet Count 349 K/mm3 (142-424); Red Cell Distribution Width 12.6 % (11.5-17.5); White Blood Count 13.6 K/mm3 (4.8-10.8)
[2022-06-26 07:05] LABS: Rubella Antibodies, IgG <0.90 index (Immune >0.99)
[2022-06-26 09:32] LABS: Rapid Plasma Reagin Ab Titer Non Reactive (NonRea<1:1)
[2022-07-02 09:13] LABS: HIV Screen 4th Generation wRfx NON REACTIVE; Hepatitis B Surface Antigen NEGATIVE
[2022-07-02 09:14] LABS: Hepatitis C Antibody <0.1
== END ==
PROVIDERS: PCP Psychiatry & Neurology Sleep Medicine; Visit Provider Obstetrics & Gynecology
DX: Z34.90 Encounter for supervision of normal pregnancy, unspecified, unspecified trimester (principal)
CPT/HCPCS: 36415; 85025; 86592; 86703; 86762; 86850; 87340; 87380; G0432

== ENCOUNTER → 2022-06-30 09:30 | Outpatient (CLI) | payer BC, SELFPAY ==
[2022-06-30 09:47] LABS: Total Volume,Urine 750 mL (600-1600)
[2022-06-30 09:53] LABS: Total Protein 24 Hour,Urine 60 mg/24 hr (40-90)
== END ==
PROVIDERS: PCP Family Medicine; Visit Provider Obstetrics & Gynecology
DX: Z34.90 Encounter for supervision of normal pregnancy, unspecified, unspecified trimester (principal)
CPT/HCPCS: 84155

== ENCOUNTER → 2022-09-09 14:54 | Outpatient (CLI) | payer BC, SELFPAY ==
--- NOTE | 2022-09-09 14:54 | US_ITS ---
FINAL REPORT CLINICAL HISTORY: 20 week anatomy scan FINDINGS: There is a single live intrauterine gestation. Presentation is cephalic. The cervix is closed and measures 3.1. Placenta is posterior, grade 1. movement is noted. Heart rate is noted at 152 beats per minute. Three-vessel cord with satisfactory umbilical cord insertion. Four-chamber heart is noted. SPINE: No anomalies identified. AMNIOTIC FLUID: Appropriate amount. MEASUREMENTS: ULTRASOUND AGE: 22 weeks 0 days. GESTATION AGE: 22 weeks 0 days. ESTIMATED WEIGHT: 471 g GROWTH PERCENTILE: 46 % BPD: 5.28 cm corresponding to 22 weeks 1 day. OFD: 6.78 cm corresponding to 22 weeks 2 days. HC: 19.09 cm corresponding to 21 weeks 3 days. AC: 16.91 cm corresponding to 22 weeks 0 days. FL: 3.86 cm corresponding to 22 weeks 3 days. CEREBELLUM: 2.21 cm corresponding to 22 weeks 1 day. HUMERUS: 3.55 cm corresponding to 22 weeks 2 days. HC/AC: 1.13 CI: 78% FL/BPD: 73% FL/AC: 23% IMPRESSION: Single living IUP with an ultrasound age of 22 weeks 0 days. Reviewed, Interpreted and Dictated by Floyd Browning III, MD Transcribed by Anabela Moya Authenticated and [facility]
== END ==
PROVIDERS: PCP Family Medicine; Visit Provider Obstetrics & Gynecology
DX: Z34.90 Encounter for supervision of normal pregnancy, unspecified, unspecified trimester (principal); Z3A.20 20 weeks gestation of pregnancy
CPT/HCPCS: 76811

== ENCOUNTER → 2022-10-16 08:37 | Outpatient (CLI) | payer BC, SELFPAY ==
[2022-10-16 08:55] LABS: Basophils % 0.2 % (0.1-2.0); Eosinophils # 0.2 K/mm3 (0.0-0.4); Eosinophils % 1.6 % (0.1-12.0); Hematocrit 37.9 % (37.0-47.0); Hemoglobin 12.3 g/dL (12.2-16.2); Lymphocytes # 2.1 K/mm3 (0.7-4.5); Mean Corpuscular HGB Conc 32.5 g/dL (31.8-35.4); Mean Corpuscular Hemoglobin 30.8 pg (27.0-31.2); Mean Corpuscular Volume 94.8 fl (81-99); Mean Platelet Volume 7.9 fl (7.4-10.4); Monocytes # 0.5 K/mm3 (0.1-1.0); Monocytes % 4.2 % (1.7-9.3); Neutrophils # 9.4 K/mm3 (1.8-7.8); Neutrophils % 76.9 % (37.0-80.0); Platelet Count 281 K/mm3 (142-424); Red Cell Distribution Width 12.9 % (11.5-17.5); White Blood Count 12.2 K/mm3 (4.8-10.8)
[2022-10-16 09:02] LABS: Creatinine,Urine Random 71 mg/dL (Not Estab.)
[2022-10-16 09:05] LABS: Microalbumin < 6.000 mg/L (0-16.7)
[2022-10-16 09:08] LABS: Glucose,Fasting 82 mg/dl (74-100)
[2022-10-16 09:47] LABS: Alanine Aminotransferase 13 U/L (12-78); Albumin Level 3.5 g/dl (3.5-5.0); Albumin/Globulin Ratio 1.5 (1.1-1.8); Alkaline Phosphatase 112 U/L (38-126); Anion Gap 7.6 mEq/L (5-15); Aspartate Amino Transferase 21 U/L (14-36); Bilirubin,Total 0.5 mg/dl (0.2-1.3); Blood Urea Nitrogen 4 mg/dl (7-17); Calcium 8.3 mg/dl (8.4-10.2); Carbon Dioxide 24 mmol/L (22.0-30.0); Chloride 106 mmol/L (98-107); Estimated Glomerular Filt Rate 156 ml/min (>60); GFR (African American) 188 ML/MIN (>60); Globulin 2.4 g/dL (1.3-3.2); Glucose 75 mg/dl (74-100); Potassium 3.6 mmoL/L (3.5-5.1); Sodium 134 mmol/L (136-145); Total Protein,Serum 5.9 g/dl (6.3-8.2)
[2022-10-16 10:36] LABS: Glucose 1 Hour 113 mg/dL (74-100)
== END ==
PROVIDERS: PCP Family Medicine; Visit Provider Obstetrics & Gynecology
DX: N28.9 Disorder of kidney and ureter, unspecified (principal); Z3A.22 22 weeks gestation of pregnancy
CPT/HCPCS: 36415; 80053; 82043; 82570; 82951; 85025

== ENCOUNTER 2022-11-17 01:29 | Outpatient (CLI) | payer BC, SELFPAY ==
[2022-11-17 01:36] VITALS: BP 129/73; PULSE 92; RESP 18; TEMP 36.9; O2SAT 98; BMI 27.3
[2022-11-17 01:57] LABS: Microscopic, Urine URINE MICROSCOPIC (MICROSCOPIC)
[2022-11-17 01:58] LABS: Appearance,Urine CLEAR (Clear); Bilirubin,Urine Negative (Negative); Blood, Urine 1+ (Negative); Color,Urine YELLOW (Yellow); Glucose,Urine (UA) Negative (Negative); Ketones,Urine Negative (Negative); Leukocyte Esterase,Urine Negative (Negative); Nitrate,Urine Negative (Negative); Protein,Urine Negative (Negative); Specific Gravity, Urine 1.015 (1.005-1.030); Urobilinogen,Urine 0.2 EU/dl (0.2)
[2022-11-17 02:10] LABS: Barbiturates Screen,Urine Negative ng/ml (<200)
[2022-11-17 02:11] LABS: Amphetamine/Metha Screen,Urine Negative ng/ml (<1000); Bacteria,Urine Trace /lpf; Benzodiazepines Screen,Urine Negative ng/ml (<200); WBC,Urine Occasional #/hpf (0-3)
[2022-11-17 02:12] LABS: Cannabinoid Screen,Urine Negative ng/ml (<50)
[2022-11-17 02:13] LABS: Cocaine Screen,Urine Negative ng/ml (<300); Methadone Screen,Urine Negative ng/ml (<300)
[2022-11-17 02:14] LABS: Opiate Screen,Urine Negative ng/ml (<300)
[2022-11-17 02:15] LABS: Phencyclidine Screen,Urine Negative ng/ml (<25)
== END 2022-11-17 02:20 | disposition home or self-care (01) ==
LOC: OBOUT 01:30 → OB 01:31
PROVIDERS: PCP Family Medicine; Visit Provider Obstetrics & Gynecology
DX: O26.893 Other specified pregnancy related conditions, third trimester (principal); Z3A.31 31 weeks gestation of pregnancy; R10.30 Lower abdominal pain, unspecified; R10.2 Pelvic and perineal pain
CPT/HCPCS: 59025; 80305; 81001

== ENCOUNTER → 2022-11-20 07:57 | Outpatient (CLI) | payer BC, SELFPAY ==
--- NOTE | 2022-11-20 08:03 | US_ITS ---
FINAL REPORT CLINICAL HISTORY: OB BPP/Growth with KEEGAN SD Ratio-SGA FINDINGS: There is a single live intrauterine gestation. Presentation is cephalic. The cervix is closed and measures 3.4 cm. There is funneling of the cervix noted with a small amount of endocervical fluid. Placenta is posterior, grade 2. Cardiac activity is confirmed at 146 bpm. Fetus is active. Three-vessel cord with satisfactory umbilical cord insertion. Four-chamber heart is noted. ABDOMEN: Both kidneys are unremarkable. Stomach is unremarkable. KEEGAN: 11.2, normal UMBILICAL ARTERY SD RATIO: 2.65 MEASUREMENTS: ULTRASOUND AGE: 32 weeks 1 day. GESTATION AGE: 32 weeks 2 days. ESTIMATED WEIGHT: 1728 g GROWTH PERCENTILE: 13% BPD: 8.3 cm corresponding to 33 weeks 3 days. OFD: 10.3 cm corresponding to 32 weeks 3 days. HC: 29.5 cm corresponding to 32 weeks 5 days. AC: 26.12 cm corresponding to 30 weeks 2 days. FL: 6.1 cm corresponding to 32 weeks 0 days. HC/AC: 1.13 CI: 80% FL/BPD: 74 % FL/AC: 34% BREATHIN MOVEMENT: 2 TONE: 2 FLUID VOLUME: 2 BPP SCORE: 8 IMPRESSION: Single living IUP with an ultrasound age of 32 weeks 1 day. BPP SCORE: 8/8 Reviewed, Interpreted and Dictated by Floyd Browning III, MD Transcribed by Renee Dorsey Authenticated and . [facility]
== END ==
PROVIDERS: PCP Family Medicine; Visit Provider Obstetrics & Gynecology
DX: O36.5990 Maternal care for other known or suspected poor fetal growth, unspecified trimester, not applicable or unspecified (principal); Z3A.32 32 weeks gestation of pregnancy
CPT/HCPCS: 76816; 76819; 76820

== ENCOUNTER 2022-12-13 05:39 | Outpatient (CLI) | payer BC, SELFPAY ==
[2022-12-13 05:55] VITALS: BMI 28.3
[2022-12-13 05:56] VITALS: BP 126/76; PULSE 87; RESP 17; TEMP 36.6; O2SAT 98; BMI 28.3
[2022-12-13 08:19] LABS: Barbiturates Screen,Urine Negative ng/ml (<200)
[2022-12-13 08:20] LABS: Amphetamine/Metha Screen,Urine Negative ng/ml (<1000); Appearance,Urine CLEAR (Clear); Benzodiazepines Screen,Urine Negative ng/ml (<200); Bilirubin,Urine Negative (Negative); Blood, Urine Negative (Negative); Color,Urine YELLOW (Yellow); Glucose,Urine (UA) Negative (Negative); Ketones,Urine Negative (Negative); Leukocyte Esterase,Urine Negative (Negative); Microscopic, Urine URINE MICROSCOPIC (MICROSCOPIC); Nitrate,Urine Negative (Negative); Protein,Urine Negative (Negative); Urobilinogen,Urine 0.2 EU/dl (0.2)
[2022-12-13 08:21] LABS: Cannabinoid Screen,Urine Negative ng/ml (<50); Cocaine Screen,Urine Negative ng/ml (<300)
[2022-12-13 08:22] LABS: Methadone Screen,Urine Negative ng/ml (<300)
[2022-12-13 08:23] LABS: Opiate Screen,Urine Negative ng/ml (<300); Phencyclidine Screen,Urine Negative ng/ml (<25)
[2022-12-13 09:06] LABS: Bacteria,Urine Trace /lpf; WBC,Urine Occasional #/hpf (0-3)
== END 2022-12-13 08:03 | disposition home or self-care (01) ==
LOC: OBOUT 05:39 → OB 05:40
PROVIDERS: PCP Family Medicine; Visit Provider Obstetrics & Gynecology
DX: O26.893 Other specified pregnancy related conditions, third trimester (principal); Z3A.35 35 weeks gestation of pregnancy; M54.50 Low back pain, unspecified
CPT/HCPCS: 59025; 80305; 81001; G0463

== ENCOUNTER → 2022-12-20 08:57 | Outpatient (CLI) | payer BC, SELFPAY | PROVIDERS: Visit Provider Obstetrics & Gynecology | DX: Z34.93 Encounter for supervision of normal pregnancy, unspecified, third trimester (principal); Z3A.37 37 weeks gestation of pregnancy | CPT/HCPCS: 86403 ==

== ENCOUNTER 2022-12-27 19:49 | Outpatient (CLI) | payer BC, SELFPAY ==
[2022-12-27 20:00] VITALS: RESP 18; TEMP 36.6; BMI 28.8
[2022-12-27 20:16] VITALS: BMI 28.7
[2022-12-27 20:21] LABS: Microscopic, Urine URINE MICROSCOPIC (MICROSCOPIC)
[2022-12-27 20:25] LABS: Appearance,Urine SL CLOUDY (Clear); Bilirubin,Urine Negative (Negative); Blood, Urine Negative (Negative); Color,Urine YELLOW (Yellow); Glucose,Urine (UA) Negative (Negative); Ketones,Urine Negative (Negative); Leukocyte Esterase,Urine Negative (Negative); Nitrate,Urine Negative (Negative); PH,Urine 5.5 (5.0-8.5); Protein,Urine Negative (Negative); Specific Gravity, Urine 1.025 (1.005-1.030); Urobilinogen,Urine 0.2 EU/dl (0.2)
[2022-12-27 20:33] LABS: Fetal Membrane Rupture (Rapid) Negative (Negative)
[2022-12-27 20:35] LABS: Bacteria,Urine 2+ /lpf; RBC,Urine Occasional #/hpf (0-3); WBC,Urine 20-50 #/hpf (0-3)
[2022-12-27 20:38] LABS: Barbiturates Screen,Urine Negative ng/ml (<200); Benzodiazepines Screen,Urine Negative ng/ml (<200)
[2022-12-27 20:39] LABS: Amphetamine/Metha Screen,Urine Negative ng/ml (<1000); Cannabinoid Screen,Urine Negative ng/ml (<50)
[2022-12-27 20:40] LABS: Cocaine Screen,Urine Negative ng/ml (<300)
[2022-12-27 20:41] LABS: Methadone Screen,Urine Negative ng/ml (<300); Opiate Screen,Urine Negative ng/ml (<300)
[2022-12-27 20:42] LABS: Phencyclidine Screen,Urine Negative ng/ml (<25)
== END 2022-12-27 21:45 | disposition home or self-care (01) ==
LOC: OBOUT 19:51 → OB 19:52
PROVIDERS: PCP Family Medicine; Visit Provider Nurse Practitioner Obstetrics & Gynecology
DX: O26.893 Other specified pregnancy related conditions, third trimester (principal); Z3A.37 37 weeks gestation of pregnancy; M54.50 Low back pain, unspecified
CPT/HCPCS: 59025; 80305; 81001; 84112; 87086; 96365; G0463

== ENCOUNTER 2023-01-06 06:55 | Inpatient (IN) | payer BC, SELFPAY ==
[2023-01-06 05:50] VITALS: BP 115/91; PULSE 92; RESP 18; TEMP 36.8; O2SAT 98; BMI 28.7
[2023-01-06 06:07] VITALS: BMI 63.3
[2023-01-06 06:20] LABS: Microscopic, Urine URINE MICROSCOPIC (MICROSCOPIC)
[2023-01-06 06:22] LABS: Appearance,Urine CLEAR (Clear); Bilirubin,Urine Negative (Negative); Blood, Urine 2+ (Negative); Color,Urine YELLOW (Yellow); Glucose,Urine (UA) Negative (Negative); Ketones,Urine Negative (Negative); Leukocyte Esterase,Urine Negative (Negative); Nitrate,Urine Negative (Negative); PH,Urine 5.5 (5.0-8.5); Protein,Urine TRACE (Negative); Specific Gravity, Urine 1.015 (1.005-1.030); Urobilinogen,Urine 0.2 EU/dl (0.2)
[2023-01-06 06:29] LABS: Fetal Membrane Rupture (Rapid) Positive (Negative)
[2023-01-06 06:33] LABS: Amphetamine/Metha Screen,Urine Negative ng/ml (<1000); Benzodiazepines Screen,Urine Negative ng/ml (<200)
[2023-01-06 06:34] VITALS: BMI 28.7
[2023-01-06 06:34] LABS: Barbiturates Screen,Urine Negative ng/ml (<200)
[2023-01-06 06:35] LABS: Cannabinoid Screen,Urine Negative ng/ml (<50); Cocaine Screen,Urine Negative ng/ml (<300)
[2023-01-06 06:36] LABS: Methadone Screen,Urine Negative ng/ml (<300)
[2023-01-06 06:37] LABS: Opiate Screen,Urine Negative ng/ml (<300); Phencyclidine Screen,Urine Negative ng/ml (<25)
[2023-01-06 06:49] LABS: WBC,Urine Occasional #/hpf (0-3)
[2023-01-06 06:50] LABS: Squamous Epithelial Cell,Urine Occasional #/hpf (0-5)
[2023-01-06 07:51] LABS: Coronavirus 19, PCR Not Detected (NotDetected); Influenza A, PCR Not Detected (NotDetected); Influenza B, PCR Not Detected (NotDetected)
[2023-01-06 08:03] LABS: Basophils % 0.2 % (0.1-2.0); Eosinophils # 0.1 K/mm3 (0.0-0.4); Eosinophils % 0.8 % (0.1-12.0); Hematocrit 34.2 % (37.0-47.0); Hemoglobin 10.8 g/dL (12.2-16.2); Lymphocytes % 11.7 % (10-50); Mean Corpuscular HGB Conc 31.6 g/dL (31.8-35.4); Mean Corpuscular Hemoglobin 26.9 pg (27.0-31.2); Mean Platelet Volume 8.2 fl (7.4-10.4); Monocytes # 0.9 K/mm3 (0.1-1.0); Monocytes % 5.5 % (1.7-9.3); Neutrophils # 13.9 K/mm3 (1.8-7.8); Neutrophils % 81.8 % (37.0-80.0); Platelet Count 351 K/mm3 (142-424); Red Blood Count 4.03 M/mm3 (4.20-5.40); Red Cell Distribution Width 13.3 % (11.5-17.5)
[2023-01-06 08:05] LABS: MANUAL DIFFERENTIAL MANUAL DIFFERENTIAL (MANUAL DIFF)
--- NOTE | 2023-01-06 08:46 | HMH.PHAINT1 ---
Pharmacy Intervention Comments: MEDICATION RECONCILIATION COMPLETE USING LIST FROM RECENT OB OFFICE VISIT AND EXTERNAL PHARMACY FILL HISTORY.
[2023-01-06 08:58] LABS: Lymphocytes % 16 % (10-50); Monocytes % 6 % (2-9); Neutrophils % 78 % (42-76); Platelet Estimate Normal; RBC Morphology Normal; Total Cells Counted 100
--- NOTE | 2023-01-06 10:21 | EXP.OB.APHP ---
OB - H&P: HPI Antepartum History of Present Illness Chief complaint: Leakage of fluid History of present illness: Ms Sun Robles is a 22 yo at 39w0d who presents to [facility] Labor and Delivery with complaint of leakage of fluid that started at 0450. She states contractions started just after leakage and have increased in frequency and intensity. She is feeling baby move. Denies vaginal bleeding. No headaches or vision changes. Admits to lower extremity swelling. She has had good care. History of Present Criteria for establishing EDC:: based on 1st trimester US only care: good care Ultrasounds: normal mid trimester US Obstetrical complications: none Medical complications: other (nephropathy) Labs Blood type: O (+) positive Rubella: nonimmune RPR/VDRL: nonreactive GBS status: negative HBsAG: negative [facility] Disclaimer: The information contained in this section may have been updated after the patient was seen, as this information can be updated by other users. 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 Normal result of biopsy of kidney Spontaneous rupture of membranes Family History Other Alcoholism Asthma Coronary artery disease Diabetes Heart attack Hypertension Kidney disease Stroke Social History Smoking Status: Former smoker alcohol intake: never substance use type: denies use current occupational status: employed Travel in the last 8 weeks: None Review of Systems Review of Systems Review of systems:: pertinent systems reviewed and negative unless documented below *Gastrointestinal Comments: + contractions, leakage of fluid *Musculoskeletal Comments: + bilateral lower extremity swelling Meds Home Medications and Allergies Home Medications Medication Instructions Recorded Confirmed Type omeprazole 20 mg capsule,delayed 20 mg PO DAILY Heartburn 01/06/23 01/06/23 History release ondansetron 8 mg disintegrating 8 mg PO Q12H Nausea 01/06/23 01/06/23 History tablet polyethylene glycol 3350 17 17 g PO DAILY Constipation 01/06/23 01/06/23 History gram/dose oral powder (Miralax) vits no.126-ferrous fum 1 tab PO DAILY Supplement 01/06/23 01/06/23 History 28 mg iron-folic acid 800 mcg tablet (Classic ) New Prescriptions to Start Prescriptions: Allergies Allergy/AdvReac Type Severity Reaction Status Date / Time ibuprofen AdvReac Verified 01/01/23 11:50 OB - H&P: Exam Physical Exam Vital signs: Temp Pulse Resp BP Pulse Ox 98.3 F 92 H 18 115/91 H 98 01/06/23 05:50 01/06/23 05:50 01/06/23 05:50 01/06/23 05:50 01/06/23 05:50 Constitutional no acute distress Routine HEENT Exam Head: Present normocephalic and atraumatic Eye: Absent conjunctivae pink ENT: Present mucous membranes moist and dentition normal Routine Neck Exam Present full ROM Routine Respiratory Exam Present CTA bilaterally and normal respiratory effort Routine Cardiovascular Exam Present RRR Routine Abdominal Exam Present soft (Gravid); Absent tenderness Routine Rectal Exam Patient deferred: visual exam Routine Exam Patient deferred: external exam Routine Extremities Exam Present edema (+2 bilateral lower extremity swelling) and full ROM; Absent calf tenderness Routine Neurological Exam Present alert, oriented X3 and moving all extremities Routine Psychiatric Exam Present normal affect and cooperative Detailed Labor and Delivery Exam Dilation (cm): 2 Effacement (%): 90 Cervix position: posterior station: -2 Consistency: soft Membranes: spontaneously ruptured (0450) Amniotic fluid: clear Baseline heart rate: 135 monitor accelerations: Present monitor decelerations: None intermediate accountant variability: Moderate
--- NOTE | 2023-01-06 15:46 | P.PN_ITS ---
[facility] Disclaimer: The information contained in this section may have been updated after the patient was seen, as this information can be updated by other users. 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 Normal result of biopsy of kidney Spontaneous rupture of membranes Family History Other Alcoholism Asthma Coronary artery disease Diabetes Heart attack Hypertension Kidney disease Stroke Social History Smoking Status: Former smoker alcohol intake: never substance use type: denies use current occupational status: employed Travel in the last 8 weeks: None [facility] Anesthesia Checklist Patient Identification Patient Identification: Arm Band Structural Data Admitted From: Inpatient Planned Operative Procedure/s: Labor Epidural Consent for Planned Operative Procedure(s) Verified: Yes Verified Documents: Surgical Consent and History and Physical NPO Status Verified Time NPO: 00:00 Additional verifications Anesthesia Reactions: No Airway Assessment C-Spine Mobility Assessed: Yes TMJ Mobility Assessed: Yes Dentition: Good Dentition Neurological Assessment Level of Consciousness: Awake and Alert Anesthesia Plan Anesthesia Risk discussed: Yes Anesthesia Plan: Verified ASA Class: II Anesthesia Type: Epidural
[2023-01-07] VITALS (7 sets, daily range): BP systolic 103–130; BP diastolic 53–73; PULSE 67–110; RESP 16–18; TEMP 36.6–37.9; O2SAT 95–100
--- NOTE | 2023-01-07 01:51 | EXP.DN ---
Delivery Note Delivery Date:: 01/07/23 Delivery Time:: : Anesthesia Type: Epidural Was labor medically induced?: No Gestational age (weeks): 39 Infant delivered prior to 39 weeks?: No Gender: Male at 1 minute: 7 at 5 minutes: 8 Delivery Procedure:: Mom complete without epidural. Pushed for approximately 1 hour 41 minutes. Head delivered spontaneously over intact perineum in WILLIAM position. Nuchal cord x 1 easily reduced. Anterior shoulder delivered with gentle downward pressure. Posterior shoulder and remainder of body delivered spontaneously. Baby placed on maternal abdomen, mouth and nares bulb suctioned, warmed/dried and stimulated. Delayed cord clamping was performed for 60 seconds. Cord was clamped and cut by father of baby. Cord blood was obtained. Placenta delivered spontaneously and intact. 2nd degree perineal laceration repaired with 3-0 Vicryl. Hemostasis noted. Mom and baby were skin to skin and doing well after delivery. Live female/male baby (baby's name is Darren) APGARs 7, (1 min), 9 (5 min) EBL 200 mL Placental Delivery Description: Spontaneous
[2023-01-08 04:01] VITALS: BP 108/57; PULSE 80; RESP 17; TEMP 36.8; O2SAT 97
[2023-01-08 06:40] LABS: Basophils # 0.1 K/mm3 (0-0.2); Basophils % 0.3 % (0.1-2.0); Eosinophils # 0.4 K/mm3 (0.0-0.4); Eosinophils % 2.5 % (0.1-12.0); Hemoglobin 9.6 g/dL (12.2-16.2); Mean Corpuscular HGB Conc 31.9 g/dL (31.8-35.4); Mean Corpuscular Hemoglobin 27.4 pg (27.0-31.2); Mean Corpuscular Volume 85.9 fl (81-99); Mean Platelet Volume 8.1 fl (7.4-10.4); Monocytes # 0.8 K/mm3 (0.1-1.0); Monocytes % 5.1 % (1.7-9.3); Neutrophils # 11.4 K/mm3 (1.8-7.8); Neutrophils % 73.1 % (37.0-80.0); Platelet Count 293 K/mm3 (142-424); Red Blood Count 3.49 M/mm3 (4.20-5.40); Red Cell Distribution Width 13.4 % (11.5-17.5); White Blood Count 15.6 K/mm3 (4.8-10.8)
[2023-01-08 06:42] LABS: MANUAL DIFFERENTIAL MANUAL DIFFERENTIAL (MANUAL DIFF)
[2023-01-08 07:15] LABS: Lymphocytes % 15 % (10-50); Monocytes % 1 % (2-9); Neutrophils % 84 % (42-76); Platelet Estimate Normal; RBC Morphology Normal; Total Cells Counted 100
--- NOTE | 2023-01-08 08:16 | EXP.DC.SUM ---
General Admission date:: 01/06/23 Discharge date: 01/08/23 HPI HPI HPI: PPD # 1 s/p She is feeling well. Pain controlled. She is breast and formula feeding. Voiding without difficulty and passing flatus. Tolerating regular diet. Light lochia. Deneis fever/chills, chest pain and shortness of breath. No headaches, vision changes. Admits to bilateral lower leg swelling that seems to be improving since delivery. Ambulating well ad aruna. Hospital Course Hospital Course Hospital Course: Ms Sun Robles is a 22 yo at 39w0d who presents to [facility] Labor and Delivery with complaint of leakage of fluid that started at 0450. She states contractions started just after leakage and have increased in frequency and intensity. GBS negative. She had a normal spontaneous vaginal delivery with second degree perineal laceration on 01/07/23 at 0123. She delivered a live male baby (baby's name is Darren) weighing 7 lb 1 oz. APGARs 7, 8. EBL 200 mL. She did well . She is breast and formula feeding. Pain controlled. Tolerating regular diet. Voiding without difficulty and passing flatus. Light lochia. Ambulating well ad aruna. Vital signs stable, afebrile. She was discharged home on PPD # 1 with instructions to follow-up in the office in 2 weeks or sooner if needed. Exam Data for Last 24 hours Vital signs and Labs for Last 24 Hours: Temp Pulse Resp BP Pulse Ox 98.2 F 80 17 108/57 L 97 01/08/23 04:01 01/08/23 04:01 01/08/23 04:01 01/08/23 04:01 01/08/23 04:01 Laboratory Results - last 24 hr 01/08/23 06:05: WBC 15.6 H, RBC 3.49 L, Hgb 9.6 L, Hct 30.0 L, MCV 85.9, MCH 27.4, MCHC 31.9, RDW 13.4, Plt Count 293, MPV 8.1, Neut % (Auto) 73.1, Lymph % (Auto) 19.0, Sanders % (Auto) 5.1, Eos % (Auto) 2.5, Baso % (Auto) 0.3, Neut # (Auto) 11.4 H, Lymph # (Auto) 3.0, Sanders # (Auto) 0.8, Eos # (Auto) 0.4, Baso # (Auto) 0.1, Total Counted 100, Neutrophils % (Manual) 84 H, Lymphocytes % (Manual) 15, Monocytes % (Manual) 1 L, Platelet Estimate Normal, RBC Morphology Normal I & O for Last 24 hours: Intake & Output 01/05/23 01/06/23 01/07/23 01/08/23 23:59 23:59 23:59 23:59 Output Total 1200 / 1200 250 / 250 Balance -1200 / -1200 -250 / -250 Weight 147 lb Constitutional Constitutional: no acute distress *Routine HEENT Exam Head: Present normocephalic and atraumatic Eye: Absent conjunctivae pink ENT: Present mucous membranes moist and dentition normal *Routine Neck Exam Neck: Present full ROM *Routine Respiratory Exam Respiratory: Present CTA bilaterally and normal respiratory effort *Routine Cardiovascular Exam Cardiovascular: Present RRR *Routine Abdominal Exam Abdominal: Present soft; Absent tenderness or distended Comments: Uterine fundus firm and below umbilicus *Routine Rectal Exam Patient deferred: visual exam *Routine Exam Patient deferred: external exam *Routine Extremities Exam Extremities: Present edema (+1 bilateral lower extremity edema) and full ROM; Absent calf tenderness *Routine Neurological Exam Neurological: Present alert, oriented X3 and moving all extremities Routine Psychiatric Exam Psychiatric: Present normal affect and cooperative Results Data Completed and Pending Labs on day of discharge: Labs from last 24 hours 01/08/23 06:05 WBC 15.6 H RBC 3.49 L Hgb 9.6 L Hct 30.0 L MCV 85.9 MCH 27.4 MCHC 31.9 RDW 13.4 Plt Count 293 MPV 8.1 Neut % (Auto) 73.1 Lymph % (Auto) 19.0 Sanders % (Auto) 5.1 Eos % (Auto) 2.5 Baso % (Auto) 0.3 Neut # (Auto) 11.4 H Lymph # (Auto) 3.0 Sanders # (Auto) 0.8 Eos # (Auto) 0.4 Baso # (Auto) 0.1 Total Counted 100 Neutrophils % (Manual) 84 H Lymphocytes % (Manual) 15 Monocytes % (Manual) 1 L Platelet Estimate Normal RBC Morphology Normal DS: Diagnosis Discharge Diagnosis (1) 39 weeks gestation of : Status: Acute Code(s): Z3A.39 - 39 weeks gestation of (2) Spontaneous rupture of membran
[2023-01-08 09:00] VITALS: BP 118/70; PULSE 78; RESP 20; TEMP 36.6; O2SAT 100
== END 2023-01-08 04:05 | disposition home or self-care (01) | DRG 807 ==
LOC: OBOUT 06:56 → OB 06:56
PROVIDERS: Admitting Provider Obstetrics & Gynecology; PCP Family Medicine; Visit Provider Obstetrics & Gynecology
DX: O69.81X0 Labor and delivery complicated by cord around neck, without compression, not applicable or unspecified (principal); Z37.0 Single live birth; O70.1 Second degree perineal laceration during delivery; N28.89 Other specified disorders of kidney and ureter; N05.9 Unspecified nephritic syndrome with unspecified morphologic changes; O99.892 Other specified diseases and conditions complicating childbirth
CPT/HCPCS: 59409; 36415; 59025; 80305; 81001; 84112; 85007; 85025; 86850; 87636; 94761; C1758; G0283; G0463; J2405

== ENCOUNTER → 2023-05-21 14:32 | Outpatient (CLI) | payer BC, SELFPAY ==
--- NOTE | 2023-05-21 14:44 | CT_ITS ---
PROCEDURE INFORMATION: Exam: CT Abdomen And Pelvis Without Contrast Exam date and time: 05/21/2023 4:41 PM Age: 22 years old Clinical indication: Abdominal pain; Flank; Right; Additional info: Dysura, flank pain, RT lower quad pain TECHNIQUE: Imaging protocol: Computed tomography of the abdomen and pelvis without contrast. Radiation optimization: All CT scans at this facility use at least one of these dose optimization techniques: automated exposure control; mA and/or kV adjustment per patient size (includes targeted exams where dose is matched to clinical indication); or iterative reconstruction. REPORTING DATA: Count of CT and Cardiac NM exams in prior 12 months: This patient has received 0 known CTs and 0 known cardiac nuclear medicine studies in the 12 months prior to the current study. COMPARISON: No relevant prior studies available. FINDINGS: Liver: Normal. No mass. Gallbladder and bile ducts: Normal. No calcified stones. No ductal dilation. Pancreas: The pancreas is of normal size and morphology, without evidence of masses, cysts, or calcifications. The pancreatic duct is not dilated. Spleen: There are multiple calcifications in the spleen most likely reflects small granulomas. Adrenal glands: The adrenal glands appear normal. Kidneys and ureters: Minimal right-sided perinephric stranding with moderate density material in the renal collecting system, findings may reflect pyelonephritis without obstructing calculus identified. Nonobstructing left-sided intrarenal calculi. Stomach and bowel: There is large volume stool throughout the colon. Appendix: The appendix is normal in appearance. Intraperitoneal space: There is a small volume of free fluid in the pelvis. Vasculature: The abdominal aorta and its major branches appear normal without evidence of aneurysm or stenosis. The portal and mesenteric veins are patent. Lymph nodes: No enlarged or pathological lymph nodes are identified in the abdomen or pelvis. Urinary bladder: Unremarkable as visualized. Reproductive: No significant pathology. Bones/joints: The visualized osseous structures of the abdomen and pelvis appear intact and normal for patient age with no evidence of fractures or lytic or sclerotic lesions. Soft tissues: Unremarkable. IMPRESSION: 1. Normal appendix. 2. Right-sided perinephric stranding without hydronephrosis. Findings could reflect pyelonephritis. 3. Nonobstructing left-sided intrarenal calculi.
== END ==
LOC: RAD 14:34
PROVIDERS: PCP Family Medicine; Visit Provider Physician Assistant
DX: R30.0 Dysuria (principal); R10.9 Unspecified abdominal pain; R10.31 Right lower quadrant pain
CPT/HCPCS: 74176

== ENCOUNTER 2023-12-21 11:27 | Outpatient (CLI) | payer OTHER, SELFPAY ==
--- NOTE | 2023-12-21 11:30 | XR_ITS ---
FINAL REPORT CLINICAL HISTORY: Right arm pain shoulder pain COMPARISON: None FINDINGS: Two views show no evidence of an acute, displaced fracture or dislocation of the visualized bony architecture. The joint spaces appear normal. IMPRESSION: Unremarkable exam. Reviewed, Interpreted and Dictated by Heidi Tapia MD Transcribed by Pooja Lyman Authenticated and . [facility]
--- NOTE | 2023-12-21 11:30 | XR_ITS ---
FINAL REPORT CLINICAL HISTORY: Right arm and shoulder pain COMPARISON: None FINDINGS: Two views show no evidence of acute displaced fracture or dislocation of the visualized bony architecture. The joint spaces appear normal. IMPRESSION: Unremarkable exam. Reviewed, Interpreted and Dictated by Heidi Tapia MD Transcribed by Pooja Lyman Authenticated and . [facility]
== END 2023-12-21 23:59 | disposition home or self-care (01) ==
LOC: RAD 11:27
PROVIDERS: PCP Family Medicine; Visit Provider Nurse Practitioner Family
DX: M25.511 Pain in right shoulder (principal); M79.621 Pain in right upper arm
CPT/HCPCS: 73030; 73060

== ENCOUNTER 2024-02-09 13:04 | Outpatient (CLI) | payer OTHER, SELFPAY ==
--- NOTE | 2024-02-09 13:08 | MR_ITS ---
FINAL REPORT CLINICAL HISTORY: right UPPER arm pain FINDINGS: Multiplanar MR imaging was obtained of the right humerus without contrast. Motion artifact is identified on many of the images. The visualized bony structures are intact. There is no evidence of fracture or bone marrow edema. There is no bony mass. The musculature is intact. There is no soft tissue mass or cyst. There is no localized inflammatory process. IMPRESSION: No evidence of bony or soft tissue abnormality. Reviewed, Interpreted and Dictated by Floyd Browning III, MD Transcribed by Anabela Moya Authenticated and [facility]
--- NOTE | 2024-02-09 13:08 | MR_ITS ---
FINAL REPORT CLINICAL HISTORY: right shoulder pain FINDINGS: Multiplanar MR imaging of the right shoulder was performed without contrast. The tendons of the rotator cuff are intact without evidence of rotator cuff tear. The a.c. joint is intact. Fluid is seen in the subacromial/subdeltoid bursa which is nonspecific, bursitis is not excluded. The glenoid labrum is intact. The long head of the biceps tendon is intact. No significant glenohumeral joint effusion is seen. There is no evidence of fracture or dislocation. The musculature is intact. There is no evidence of soft tissue mass. IMPRESSION: No evidence of rotator cuff or labral tear. Possible bursitis. Reviewed, Interpreted and Dictated by Floyd Browning III, MD Transcribed by Anabela Moya Authenticated and [facility]
== END 2024-02-09 23:59 | disposition home or self-care (01) ==
LOC: RAD 13:04
PROVIDERS: PCP Family Medicine; Visit Provider Nurse Practitioner Family
DX: M25.511 Pain in right shoulder (principal); M79.621 Pain in right upper arm
CPT/HCPCS: 73218; 73221

== ENCOUNTER 2024-06-08 11:00 | Outpatient (RCR) | payer OTHER, BC, SELFPAY ==
--- NOTE | 2024-02-17 11:52 | HMH.OTOPEV ---
OT Inpatient Evaluation Rehab OT Outpatient Eval Start: 02/17/24 11:37 Freq: Status: Active Protocol: Document 02/17/24 11:38 [facility] (Rec: 02/17/24 11:51 [facility] [id number]) E-signed By Veronica Castañeda, OT Outpatient Therapy Subjective History Subjective History Pt is a 23 year old female who reports to therapy for initial evaluation to right shoulder. 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 Approximately one moth about she was lifting material off of a machine that weight ~25-30 lbs. When she lifted the material, her right shoulder popped three times and she experienced immediate pain and swelling at right shoulder. Pt is right hand dominant. Pt has had a MRI completed of right shoulder that showed no evidence of rotator cuff or labral tear, but possible bursitis. Pt does demonstrate with decreased AROM and strength at right shoulder. Pt will continue to be seen twice a week in order to address all right shoulder deficits. New diagnosis of cancer in past 12 No months? Chief Complaint Pain,Stiff,Weakness Symptom Type Ache,Throb,Sharp,Dull Symptoms Relieved By Nothing Symptoms Aggravated By Physical Activity,Lifting Prior Functional Limitations None Current Functional Limitations Reaching,Lifting,Housework, Driving,Sleeping Symptom Description Intermittent,Activity Dependent Level of pain today (0-10) 0 Pain scale - at its best (0-10) 0 Pain scale - at its worst (0-10) 7 Shoulder/Elbow Eval Shoulder Objective Measurements Shoulder ROM Right Shoulder Abduction Active Range of 105 degrees Motion (degrees) Shoulder Flexion Active Range of Motion 128 degrees (degrees) Query Text: Shoulder External Rotation Active Range 60 degrees of Motion (degrees) Shoulder Internal Rotation Active Range 45 degrees of Motion (degrees) Shoulder MMT Shoulder Abduction Strength Grade 4- Good- Shoulder Extension Strength Grade 4- Good- Shoulder Flexion Strength Grade 4- Good- Shoulder External Rotation Strength 4- Good- Grade Shoulder Internal Rotation Strength 4- Good- Grade Shoulder Strength Patient Testing Sitting Position Shoulder Special Tests impingement sign present shoulder exam right standard Shoulder Empty Can (Supraspinatus) Test Positive Right Shoulder Aguirre-Matt Impingement Positive Right Test Elbow Objective Measurements QuickDASH Activities Please rate your ability to do the following activities in the last week by selecting the number below the appropriate response. 1. Open a tight or new jar. No difficulty 2. 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 3. Carry a shopping bag or briefcase. No difficulty 4. Wash your back. No difficulty 5. Use a knife to cut food. No difficulty 6. Recreational activities in which you Moderate difficulty take some force or impact through your arm, shoulder, or hand (e.g., golf, hammering, tennis, etc.). 7. During the past week, to what extent Slightly has your arm, shoulder or hand problem interfered with your normal social activities with family, friends, neighbors or groups? 8. During the past week, were you Moderately limited limited in your work or other regular daily activites as a result of your arm, shoulder or hand problem? 9. Arm, shoulder or hand pain. Mild 10. Tingling (pins and needles) in your None arm, shoulder or hand. 11. During the past week, how much No difficulty difficulty have you had sleeping because of the pain in your arm, shoulder or hand? Quick DASH 17 Work Module (optional) The following questions ask about the impact of your arm, shoulder or hand problem on your ability to work (including homemaking if that is your main work role). Please indicate what your job/work is: [employer] Do you work? Yes 1. Using your usual technique for your Moderate difficulty work? 2. Doing your usual work because of arm, Severe difficulty shoulder or hand pain? 3. Doing your work as well as you would Severe difficulty like? 4. Spending your usual amount of time Severe difficulty doing your work? Quick Dash Work Module Score 15 OT Outpatient Assessment Impairments Problems/Impairments Palpation Tenderness,Impaired Range of Motion,Impaired Strength,Impaired Endurance, Impaired Lifting,Impaired Household Care,Impaired Work Activities,Subjective C/O Pain Prognosis Rehab Potential Good Clinical Impression Consistent with Diagnosis Yes Short Term Goals Number of Weeks 3 Increase Range of Motion Yes: Flex: 140 Abd: 120 ER: 75 IR: 55 Increase Strength Yes: 4/5 throughout right shoulder Increase Endurance Yes: Pt will tolerate R shoulder exercises for ~20 minutes prior to rest. 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 Decrease Subjective C/O Pain Yes: 2/10 at worst Patient to be Ind w/ Advanced HEP Yes: Advanced strengthening Improve Quick Dash Score Yes: Activities: 10 or less Outpatient Therapy Plan of Care Treatment Plan May Include Therapeutic Exercise Including Home Yes Exercise Program Manual Therapy Techniques Yes Neuromuscular Re-education Yes Therapeutic Activities to Return to Yes Previous Functional/Work Level ADL/Self Care Education Yes Thermal Modalities Yes Electrical Stimulation Yes Ultrasound/Phonophoresis Yes Iontophoresis Yes Orthotics/Bracing/Splinting Yes Massage Yes Eval/Re-Eval Yes Frequency Times per week 2 Duration Number of Weeks 6 Addendums This patient is a candidate for social No or vocational rehab? Patient/Guardian verbally acknowledges Yes understanding of treatment program and consents to further treatment? Patient/Guardian verbally acknowledges Yes understanding of diagnosis, prognosis and goals for treatment? Eval Complexity OT Charge 68964 - Moderate Complexity PHYSICIAN CERTIFICATION: I certify the specified therapy services for Sun Robles are required, authorized, and reviewed every 30 days.
--- NOTE | 2024-03-14 15:51 | HMH.RHREAS ---
Rehab Reassessment Rehab OP Re-assessment Start: 02/17/24 11:16 Freq: Status: Active Protocol: Document 03/14/24 14:59 RAYMOND (Rec: 03/14/24 15:51 RAYMOND [id number]) E-signed By Veronica Castañeda OT Rehab Re-assessment Subjective Subjective I am still having pretty bad pain at times. Objective Objective Notes Pt continues to be seen weekly for right shoulder deficits. At this time, pt engages in AROM and AAROM exercises at right shoulder. Pt also receives PROM manual stretching to right shoulder. Modalities are provided in order to decrease pain/ inflammation. Assessment Progress Assessment Slower Than Expected Assessment Notes Pt has only attended 2 therapy sessions since initial evaluation, including todays session. Pt reports worst pain still reaching a 4/10 at worst as long as she does not engage in specific motions that aggravate the joint. Pt explains most of her pain is in abduction and internal rotation. Pt's AROM has improved slightly since initial evaluation, but internal rotation remains very limited and painful. Current R shoulder AROM Flex: 135 degrees Abd: 122 degrees ER: 75 degrees IR: [address], 4, and 5 Goals Not Met See below Revised Goals ST, 2, and 6 LT-6 Plan Plan Continue with OT plans of care at this time Frequency of Therapy 2x's a week Duration of therapy 4 more weeks Time and Billing Re-Eval Time 9 Re-Eval Billing Units 1 PHYSICIAN CERTIFICATION: I certify the specified therapy services for Sun Robles are required, authorized, and reviewed every 30 days.
--- NOTE | 2024-04-11 15:14 | HMH.RHREAS ---
Rehab Reassessment Rehab OP Re-assessment Start: 02/17/24 11:16 Freq: Status: Active Protocol: Document 04/11/24 14:05 RAYMOND (Rec: 04/11/24 15:13 RAYMOND [id number]) E-signed By Veronica Castañeda OT Rehab Re-assessment Subjective Subjective I am feeling okay today. Objective Objective Notes Pt continues to be seen weekly for right shoulder deficits. At this time, pt engages in AROM, AAROM, and strengthening exercises at right shoulder. Pt also receives PROM manual stretching to right shoulder. Modalities are provided in order to decrease pain/ inflammation. Assessment Progress Assessment Slower Than Expected Assessment Notes Pt has been more consistent about attending therapy sessions within the last 30 days. Since last re- assessment, pt has had a MRI completed and she has seen an ortho. MRI had findings of possible bursitis. Ortho requested more therapy and recommended phonophoresis for inflammation/pain. Pt returns to ortho on April 30. However, pt has had an increase in pain/inflammation since seeing the ortho. Pt reports pain reaching an 8/10 at worst now. Pt explains most of her pain is in abduction and internal rotation. Pt's AROM has declined slightly in abduction and internal rotation since last re-assessment. These are the two ways pt has most of her pain. Current R shoulder AROM Flex: 138 degrees Abd: 115 degrees ER: 85 degrees IR: 35 degrees Patient goals met [address], 4, and 5 Goals Not Met See below Revised Goals ST, 2, and 6 LT-6 Plan Plan Continue with OT plans of care at this time Frequency of Therapy 2x's a week Duration of therapy 4 more weeks Time and Billing Re-Eval Time 8 Re-Eval Billing Units 1 PHYSICIAN CERTIFICATION: I certify the specified therapy services for Sun Robles are required, authorized, and reviewed every 30 days.
--- NOTE | 2024-05-16 11:03 | HMH.RHREAS ---
Rehab Reassessment Rehab OP Re-assessment Start: 02/17/24 11:16 Freq: Status: Active Protocol: Document 05/16/24 10:57 RAYMOND (Rec: 05/16/24 11:02 RAYMOND [id number]) E-signed By Veronica Castañeda OT QuickDASH Activities Please rate your ability to do the following activities in the last week by selecting the number below the appropriate response. 1. Open a tight or new jar. No difficulty 2. Do heavy face hardener (e.g., wash Moderate difficulty mckeon, floors). 3. Carry a shopping bag or briefcase. Moderate difficulty 4. Wash your back. Mild difficulty 5. Use a knife to cut food. No difficulty 6. Recreational activities in which you Severe difficulty take some force or impact through your arm, shoulder, or hand (e.g., golf, hammering, tennis, etc.). 7. During the past week, to what extent Not at all has your arm, shoulder or hand problem interfered with your normal social activities with family, friends, neighbors or groups? 8. During the past week, were you Moderately limited limited in your work or other regular daily activites as a result of your arm, shoulder or hand problem? 9. Arm, shoulder or hand pain. Severe 10. Tingling (pins and needles) in your Moderate arm, shoulder or hand. 11. During the past week, how much Mild difficulty difficulty have you had sleeping because of the pain in your arm, shoulder or hand? Quick DASH 27 Rehab Re-assessment Subjective Subjective It has still been hurting me. Objective Objective Notes Pt continues to be seen weekly for right shoulder deficits. At this time, pt engages in AROM, AAROM, and strengthening exercises at right shoulder. Pt also receives PROM manual stretching to right shoulder. Modalities are provided in order to decrease pain/ inflammation. Assessment Progress Assessment Slower Than Expected Assessment Notes Pt has not attended therapy session in 19 days because she was awaiting approval of therapy visits for . Pt returns to ortho tomorrow for a re-evaluation. She demonstrates slight improvement in AROM with Abduction and ER. However, internal rotation remains significantly limited. Therapist has been completing phonophoresis with dexamethasone in order to decrease inflammation. However, pt continues to report pain reaching an 8/10 at worst. Pt explains most of her pain is in abduction and internal rotation. Current R shoulder AROM Flex: 140 degrees Abd: 128 degrees ER: 90 degrees IR: 35 degrees Patient goals met [address], 4, and 5 Goals Not Met See below Revised Goals ST, 2, and 6 LT-6 Plan Plan Continue with OT plans of care at this time Frequency of Therapy 2x's a week Duration of therapy 4 more weeks Time and Billing Re-Eval Time 9 Re-Eval Billing Units 1 Charge for OT reassessment? Yes PHYSICIAN CERTIFICATION: I certify the specified therapy services for Sun Robles are required, authorized, and reviewed every 30 days.
== END 2024-06-08 23:59 | disposition home or self-care (01) ==
LOC: OT 11:00
PROVIDERS: Visit Provider Nurse Practitioner Family
DX: M25.511 Pain in right shoulder (principal); M79.621 Pain in right upper arm
CPT/HCPCS: 97014; 97035; 97110; 97140; 97164; 97166; 97168; 97530; G0283

== ENCOUNTER 2024-06-08 23:10 | Emergency (ER) | payer BC, SELFPAY ==
[2024-06-08 23:11] VITALS: BP 142/97; PULSE 102; RESP 14; TEMP 36.6; O2SAT 100; BMI 27.9
[2024-06-08 23:19] VITALS: BP 122/79; PULSE 89; RESP 18; TEMP 36.6; O2SAT 98
[2024-06-08 23:46] VITALS: PULSE 90; O2SAT 99
[2024-06-09] VITALS (7 sets, daily range): BP systolic 115–145; BP diastolic 68–93; PULSE 72–104; RESP 14–20; TEMP 36.6; O2SAT 98–100
--- NOTE | 2024-06-09 00:14 | ECG_ITS ---
APPROVED REPORT Exam: Resting ECG HR:86 bpm ECG Measurements Heart Rate 86 AXES LA 127 P 56 QRSd 84 QRS 52 QT 360 T 7 QTc 404 Conclusion SINUS RHYTHM WITH MARKED SINUS ARRHYTHMIA NONSPECIFIC T-WAVE ABNORMALITY BORDERLINE ECG Slight ST abnormality in lead III and aVF as well as lead V3, no reciprocal changes, no STEMI Electronically signed by : OLIVIA MCKENZIE, 06/09/2024 03:20:32
[2024-06-09 00:15] LABS: Microscopic, Urine URINE MICROSCOPIC (MICROSCOPIC)
[2024-06-09 00:20] LABS: Basophils # 0.1 K/mm3 (0-0.2); Basophils % 0.5 % (0.1-2.0); Eosinophils # 0.1 K/mm3 (0.0-0.4); Eosinophils % 0.5 % (0.1-12.0); Hemoglobin 13.6 g/dL (12.2-16.2); Lymphocytes # 2.1 K/mm3 (0.7-4.5); Lymphocytes % 13.4 % (10-50); Mean Corpuscular HGB Conc 33.2 g/dL (31.8-35.4); Mean Corpuscular Hemoglobin 28.2 pg (27.0-31.2); Mean Corpuscular Volume 84.9 fl (81-99); Mean Platelet Volume 7.7 fl (7.4-10.4); Monocytes # 0.6 K/mm3 (0.1-1.0); Neutrophils # 12.7 K/mm3 (1.8-7.8); Neutrophils % 81.6 % (37.0-80.0); Platelet Count 314 K/mm3 (142-424); Red Blood Count 4.83 M/mm3 (4.20-5.40); Red Cell Distribution Width 13.9 % (11.5-17.5); White Blood Count 15.6 K/mm3 (4.8-10.8)
[2024-06-09 00:23] LABS: MANUAL DIFFERENTIAL MANUAL DIFFERENTIAL (MANUAL DIFF)
[2024-06-09 00:26] LABS: Appearance,Urine CLEAR (Clear); Bilirubin,Urine Negative (Negative); Blood, Urine 1+ (Negative); Color,Urine YELLOW (Yellow); Glucose,Urine (UA) Negative (Negative); Ketones,Urine Negative (Negative); Leukocyte Esterase,Urine Negative (Negative); Nitrate,Urine Negative (Negative); Protein,Urine Negative (Negative); Specific Gravity, Urine >= 1.030 (1.005-1.030)
[2024-06-09 00:33] LABS: HCG Qualitative, Serum Negative (Negative)
[2024-06-09 00:35] LABS: INR 0.89 (0.9-1.1); Prothrombin Time 10.1 seconds (10.1-12.5)
[2024-06-09 00:36] LABS: Alanine Aminotransferase 45 U/L (12-78); Albumin Level 4.7 g/dl (3.5-5.0); Albumin/Globulin Ratio 1.5 (1.1-1.8); Alkaline Phosphatase 124 U/L (38-126); Aspartate Amino Transferase 74 U/L (14-36); Bacteria,Urine 2+ /lpf; Bilirubin,Total 0.6 mg/dl (0.2-1.3); Blood Urea Nitrogen 8 mg/dl (7-17); Calcium 9.4 mg/dl (8.4-10.2); Carbon Dioxide 25 mmol/L (22.0-30.0); Chloride 105 mmol/L (98-107); Creatinine Clearance Estimated 128 mL/min (50-200); Estimated Glomerular Filt Rate 104 ml/min (>60); GFR (African American) 125 ML/MIN (>60); Globulin 3.1 g/dL (1.3-3.2); Glucose 154 mg/dl (74-100); Mucus,Urine 1+ /lpf; Potassium 3.3 mmoL/L (3.5-5.1); Total Protein,Serum 7.8 g/dl (6.3-8.2)
[2024-06-09 00:42] LABS: Anion Gap 14.3 mEq/L (5-15); Sodium 141 mmol/L (136-145)
[2024-06-09 00:48] LABS: D-Dimer 0.77 ug/mL (0.0-0.5); Troponin I < 0.01 ng/ml (0.00-0.034)
[2024-06-09 00:58] LABS: Eosinophils % 1 % (0-3); Lymphocytes % 14 % (10-50); Neutrophils % 85 % (42-76); Total Cells Counted 100
[2024-06-09 00:59] LABS: RBC Morphology Normal
--- NOTE | 2024-06-09 01:41 | HMH.EDGENADL ---
Discharge Plan Disposition Patient Disposition: Home, Self-Care Prescriptions Prescriptions: No Action fluoxetine 20 mg capsule 20 mg PO DAILY medroxyprogesterone 150 mg/mL suspension 150 mg IM [id number] Qty: 1 1RF Referrals Follow up/Referrals: Provider,Referral, [Primary Care Provider] - See instructions Activity Restrictions/Add. Instructions Additional Instructions/Restrictions: Your evaluated in the ER and are appropriate for discharge at this time. Continue taking your home medications as prescribed. Please make an appointment with your primary care doctor for reevaluation in 2 to 3 days. Return to the ER with new, worsening, or otherwise concerning symptoms Clinical Impressions Clinical Impression: Chest pain, Anxiety Print Language Print Language: [place] Discharge ED Provider: James Spencer Adult HPI General Chief complaint: Anxiety Stated complaint: panic attack Time Seen by Provider: 06/08/24 23:55 Mode of Arrival: Ambulatory Source of Information: Patient Limitations: No Limitations Description of Symptoms (Recalled from ER Triage Doc. by RN): Patient reports a panic attack starting at 10:13 pm. 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 States she started having panic attacks post- and was recently taken off medication, but had some left so she took one. History of Present Illness HPI narrative: 23-year-old female with history of anxiety presents to the ER for complaints of panic attack. She states that started around 10 PM and she took 2 doses of hydroxyzine. She states she has occasional panic attacks and typically they are resolved by taking hydroxyzine, however despite taking 2 doses of hydroxyzine she continues having symptoms of panic attack which for her she states are chest pain, shortness of breath, and nausea. She does report 1 episode of emesis as well. Patient is on the Depo shot, she does not recall her last menstrual period. She states she has no headache or dizziness, no numbness, tingling, or weakness, no diarrhea or constipation, no dysuria or hematuria. Related Data Home Medications ?Medication ?Instructions ?Recorded ?Confirmed fluoxetine 20 mg capsule 20 mg PO DAILY 05/07/23 05/18/24 Previous Rx's ?Medication ?Instructions ?Recorded medroxyprogesterone 150 mg/mL 150 mg IM [id number] #1 mL 05/18/24 intramuscular suspension Allergies Allergy/AdvReac Type Severity Reaction Status Date / Time ibuprofen AdvReac Verified 05/18/24 10:26 [facility] Disclaimer: The information contained in this section may have been updated after the patient was seen, as this information can be updated by other users. Medical History depression Acute blood loss anemia Spontaneous rupture of membranes 39 weeks gestation of Normal result of biopsy of kidney C1q nephropathy No NSAIDs Family History Other Alcoholism Asthma Coronary artery disease Diabetes Heart attack Hypertension Kidney disease Stroke Social History Smoking Status: Never smoker alcohol intake: never substance use type: denies use current occupational status: employed Travel in the last 8 weeks: None Other Medical History Have you received the Flu Vaccine for this season: No Have you received the Pneumonia Vaccine: No ROS Obtained: Yes Systems reviewed as appropriate & no additional complaints except as documented ROS per HPI Physical Exam General General appearance: alert and in no apparent distress Head Head exam: atraumatic and normocephalic Eye Eye exam: Present PERRL and EOMI ENT ENT exam: Present mucous membranes moist Neck Neck exam: Present normal inspection and full ROM Chest Chest inspection: Present symmetric chest wall rise Respiratory Respiratory exam: Present normal lung sounds bilaterally; Absent respiratory distress, wheezes or stridor Cardiovascular Cardiovascular exam: Present regular rate (Borderline tachycardia, heart rate in the 90s during my exam) and normal rhythm Abdominal Exam Abdominal exam: Present soft; Absent distention, tenderness, guarding or rebound Extremities Exam Extremities exam: Present full ROM Back Exam Back exam: Absent tenderness, CVA tenderness (R) or CVA tenderness (L) Neurological Exam Neurological exam: Present alert and oriented X3; Absent motor sensory deficit Psychiatric Psychiatric exam: Present normal affect and normal mood Skin Skin exam: Present warm and dry Medical Decision Making Medical Records Medical records reviewed: Yes I reviewed the patient's medical records. Screening: Per USPSTF and CDC recommendations, given the prevalence of disease in our region, it is our hospital?s policy to screen for HIV and viral Hepatitis for all patients aged 18 and over and those with ongoing risk factors. MR Comment: Review of notes from orthopedics demonstrates patient has history of biceps tendinitis of the right shoulder, bursitis, neuropathy of the right upper extremity Erik Inquiry Pt receiving controlled substance: No Vital Signs: 06/08/24 23:11 06/08/24 23:19 06/08/24 23:46 Temperature 97.9 F 97.9 F Temperature Source Oral Oral Pulse Rate 89 90 Pulse Rate [Right Radial] 102 H Respiratory Rate 14 18 Blood Pressure 122/79 Blood Pressure [Right Arm] 142/97 H Blood Pressure Mean [Right Arm] 112 Blood Pressure Source Automatic Cuff Blood Pressure Source [Right Arm] Automatic Cuff Blood Pressure Position Supine Blood Pressure Position [Right Arm] Supine 02 Sat by Pulse Oximetry 100 98 99 Oxygen Delivery Method Room Air Room Air 06/09/24 00:00 06/09/24 00:30 06/09/24 01:00 Temperature Temperature Source Pulse Rate 104 H 93 H 73 Pulse Rate [Right Radial] Respiratory Rate 14 16 Blood Pressure 145/93 H 131/69 115/83 Blood Pressure [Right Arm] Blood Pressure Mean [Right Arm] Blood Pressure Source Blood Pressure Source [Right Arm] Blood Pressure Position Blood Pressure Position [Right Arm] 02 Sat by Pulse Oximetry 98 99 99 Oxygen Delivery Method 06/09/24 01:30 06/09/24 02:00 06/09/24 02:30 Temperature Temperature Source Pulse Rate 92 H 87 Pulse Rate [Right Radial] Respiratory Rate 20 18 19 Blood Pressure 129/81 123/78 125/68 Blood Pressure [Right Arm] Blood Pressure Mean [Right Arm] Blood Pressure Source Blood Pressure Source [Right Arm] Blood Pressure Position Blood Pressure Position [Right Arm] 02 Sat by Pulse Oximetry 100 99 Oxygen Delivery Method Lab Data Lab Results 06/09/24 00:04: WBC 15.6 H, RBC 4.83, Hgb 13.6, Hct 41.0, MCV 84.9, MCH 28.2, MCHC 33.2, RDW 13.9, Plt Count 314, MPV 7.7, Neut % (Auto) 81.6 H, Lymph % (Auto) 13.4, [place] % (Auto) 4.0, Eos % (Auto) 0.5, Baso % (Auto) 0.5, Neut # (Auto) 12.7 H, Lymph # (Auto) 2.1, [place] # (Auto) 0.6, Eos # (Auto) 0.1, Baso # (Auto) 0.1, Total Counted 100, Neutrophils % (Manual) 85 H, Lymphocytes % (Manual) 14, Eosinophils % (Manual) 1, RBC Morphology Normal, PT 10.1, INR 0.89 L, D-Dimer 0.77 H, Sodium 141, Potassium 3.3 L, Chloride 105, Carbon Dioxide 25, Anion Gap 14.3, BUN 8, Creatinine 0.70, Estimated Creat Clear 128, Estimated GFR 104, Est GFR ( Amer) 125, Glucose 154 H, Calcium 9.4, Total Bilirubin 0.6, AST 74 H, ALT 45, Alkaline Phosphatase 124, Troponin I < 0.01, Total Protein 7.8 D, Albumin 4.7, Globulin 3.1, Albumin/Globulin Ratio 1.5, Serum HCG, Qual Negative, Urine Color Yellow, Urine Appearance Clear, Urine pH 6.0, Ur Specific [place] >= 1.030, Urine Protein Negative, Urine Glucose (UA) Negative, Urine Ketones Negative, Urine Blood 1+ A, Urine Nitrate Negative, Urine Bilirubin Negative, Urine Urobilinogen 1.0, Ur Leukocyte Esterase Negative, Urine RBC 3-5, Urine WBC 3-5, Ur Squamous Epith Cells 5-10, Urine Bacteria 2+, Urine Mucus 1+ 06/09/24 02:45: Troponin I < 0.01 06/09/24 00:04 06/09/24 00:04 Orders (Tests/Meds): ED MEDICATIONS Discontinued Medications Generic Name Dose Route Start Last Admin Trade Name Freq PRN Reason Stop Dose Admin Potassium Chloride 20 meq 06/09/24 02:49 06/09/24 02:51 Potassium Chloride 20meq Tab PO 06/09/24 02:50 20 meq ONCE ONE Administration ORDERS Category Date Time Status CXR --portable [XR chest portable] Stat Exams 06/09/24 02:51 Taken Complete Blood Count Auto Diff Stat Lab 06/08/24 23:59 Completed Comprehensive Metabolic Panel Stat Lab 06/08/24 23:59 Completed D-Dimer Stat Lab 06/08/24 23:59 Completed HCG Qualitative, Serum Stat Lab 06/08/24 23:59 Completed Prothrombin Time INR Stat Lab 06/08/24 23:59 Completed Troponin I Q3H Lab 06/09/24 02:45 Completed Troponin I Q3H Lab 06/09/24 06:00 Ordered Troponin I Stat Lab 06/08/24 23:59 Completed Urinalysis and Microscopic Stat Lab 06/09/24 00:04 Completed Urine Culture Stat Micro 06/09/24 00:04 Received Medical Decision Narrative: In summary, this 23-year-old female with history of anxiety and panic attacks presents to the emergency department today with chest pain, nausea, vomiting, believing she is having a panic attack. On initial evaluation patient is hemodynamically stable, afebrile, cardiopulmonary exam reassuring and benign, patient has no chest wall tenderness, no reproducibility of symptoms on exam, benign abdomen. Differential diagnosis includes but is not limited to anxiety, panic attack, esophageal spasm, ACS, I also considered PE since patient is on systemic hormones for control.. Based on these concerns, I ordered serum labs, cardiac workup, chest x-ray. ECG personally interpreted demonstrates normal sinus rhythm, rate 86, normal axis, normal [place] and QTc, no STEMI. Labs personally reviewed demonstrate test negative, CBC with leukocytosis which is nonspecific and nonactionable, normal hemoglobin, normal platelets, nonactionable PT/INR, D-dimer 0.77, per years criteria PE is ruled out, CTA PE not indicated, patient has trace hypokalemia, she is receiving oral potassium, CMP otherwise nonactionable, initial troponin undetectably low at less than 0.01, UA negative for findings of infection. XR personally interpreted demonstrates no acute intrathoracic abnormality, see radiology read from interpretation. Patient was placed in the ED observation at 0130 for serial troponins to rule out evolving CT improved unnecessary admission. At that time patient was asymptomatic and resting comfortably. 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 She remained asymptomatic on frequent reassessments. Repeat troponin also detected with a less than 0.01. Patient continues to be asymptomatic and is appropriate for discharge at this time. Patient was given instructions on symptomatic management, follow up instructions, and return precautions for the emergency department. Patient indicated understanding and was discharged in stable condition. Total time in ED observation: 1 hour 45 minutes Critical Care Critical Care Time Critical Care Time: No
[2024-06-09] MEDS: POTASSIUM CHLORIDE 20MEQ TAB 20 MEQ PO (02:51)
--- NOTE | 2024-06-09 02:51 | XR_ITS ---
PROCEDURE INFORMATION: Exam: XR Chest Exam date and time: 06/09/2024 2:51 AM Age: 23 years old Clinical indication: Pain; Chest pressure; Additional info: Cp TECHNIQUE: Imaging protocol: Radiologic exam of the chest. Views: 1 view. COMPARISON: MR HUMERUS RT WO CON 02/09/2024 1:51 PM FINDINGS: Lungs: Peribronchial interstitial infiltrates are present bilaterally. No airspace disease. Pleural spaces: No pleural effusions. Heart/Mediastinum: Unremarkable. No cardiomegaly. Bones/joints: Osseous structures are appropriate for age. IMPRESSION: Airways disease or infectious bronchitis. No acute airspace pneumonia.
[2024-06-09 03:13] LABS: Troponin I < 0.01 ng/ml (0.00-0.034)
--- NOTE | 2024-06-09 03:17 | PC.NURSE ---
IV removed from patient. Catheter tip intact. Bleeding controlled.
--- NOTE | 2024-06-10 14:39 | PC.NURSE ---
urine culture discussed with , after reviewing chart and pt asymptomatic, ntd
== END 2024-06-09 03:21 | disposition home or self-care (01) ==
PROVIDERS: Emergency Provider Emergency Medicine
DX: F41.9 Anxiety disorder, unspecified (principal); R07.9 Chest pain, unspecified; R06.02 Shortness of breath; R11.0 Nausea
CPT/HCPCS: 71045; 80053; 81001; 84484; 84703; 85007; 85025; 85027; 85378; 85610; 87086; 87088; 87186; 93005; 99284

== ENCOUNTER 2024-06-10 16:00 | Outpatient (CLI) | payer BC, SELFPAY | END 2024-06-10 23:59 | disposition home or self-care (01) | LOC: RT 16:01 | PROVIDERS: PCP Physician Assistant; Visit Provider Physician Assistant | DX: R00.2 Palpitations (principal) | CPT/HCPCS: 93225; 93227 ==

== ENCOUNTER 2024-06-24 10:16 | Outpatient (CLI) | payer BC, SELFPAY | END 2024-06-24 23:59 | disposition home or self-care (01) | LOC: RT 10:17 | PROVIDERS: PCP Family Medicine; Visit Provider Physician Assistant | DX: I47.10 Supraventricular tachycardia, unspecified (principal) | CPT/HCPCS: 93270 ==

== ENCOUNTER 2024-07-22 07:44 | Outpatient (CLI) | payer BC, SELFPAY ==
--- NOTE | 2024-07-22 07:48 | CA_ITS ---
APPROVED REPORT EXAM: Comprehensive 2D, Doppler, and color-flow Echocardiogram Inspection Clerk: Paola Desir RT(R) Ht: 5 ft 0 in Wt: 142lbs BSA: 1.61 BP: 121/81 mmHg Indications: SVT, SOB, chest pain, back pain, dizziness. 2D Dimensions LVEF (Rahman's) 53.70 % F: 54 - 74 LV Volume 68.10 mL F: 46 - 106 LV Volume Index 42.3 mL/m2 F: 29 - 61 LA Volume 10.20 mL LA Volume Index 6.34 mL/m2 (M/F) 16-34 EF AP4 63.80 % EF AP2 51.1 % EF BP 53.7 % GL Strain -19.9 % M-Mode Dimensions RVDd 2.19 cm (0.9-2.6) LA Diam 2.32 cm (1.9-4.0) LVDd 4.16 cm (3.5-5.7) LVDs 2.97 cm (3.5-5.7) IVSd 0.63 cm (0.6-1.1) PWd 0.66 cm (0.6-1.1) EF (Teich) 55.50% FS 28.60% EDV (Teich) 76.80 mL ESV (Teich) 34.20 mL LV Diastology E Decel Time 157 (160-240 msec) E/A Ratio 1.5 Mitral Valve MV E Max Elijah. 90.0 (40-130 cm/s) MV A Velocity 62.0 (40-130 cm/s) E/A Ratio 1.45 MV PHT 46.0 ms Left Ventricle The left ventricle is normal size. The left ventricular systolic function is normal. The left ventricular ejection fraction is within the normal range. There is normal left ventricular wall thickness. There is normal LV segmental wall motion. The left ventricular diastolic function is normal. LVEF is 60%. Right Ventricle The right ventricle is normal size. The right ventricular systolic function is normal. Atria The left atrium size is normal. The right atrium size is normal. There is no Doppler evidence of interatrial shunt. Aortic Valve Aortic valve opens well. There is no aortic valvular stenosis. No aortic regurgitation is present. Mitral Valve The mitral valve is normal in structure. No evidence of mitral valve stenosis. There is no mitral valve regurgitation noted. Tricuspid Valve Tricuspid valve is grossly normal in structure and function. Trace tricuspid regurgitation. There is insufficient TR jet to estimate RVSP. Pulmonic Valve The pulmonary valve is normal in structure. Trace pulmonic regurgitation. Great Vessels The aortic root is normal in size. The ascending aorta is normal in size. IVC is normal in size and collapses >50% with inspiration. Pericardium There is no pericardial effusion. Other Information Study Quality: Adequate Conclusion Normal biventricular systolic function. No significant valvular stenosis or regurgitation. Electronically signed by : Kathie Melendez MD 07/30/2024 01:00:58
== END 2024-07-22 23:59 | disposition home or self-care (01) ==
LOC: RT 07:45
PROVIDERS: PCP Family Medicine; Visit Provider Physician Assistant
DX: I49.3 Ventricular premature depolarization (principal); R00.2 Palpitations; R94.31 Abnormal electrocardiogram [ECG] [EKG]; F41.9 Anxiety disorder, unspecified; R07.89 Other chest pain; R06.00 Dyspnea, unspecified
CPT/HCPCS: 93306

== ENCOUNTER 2024-08-01 08:55 | Outpatient (CLI) | payer BC, SELFPAY ==
[2024-08-01 10:18] LABS: Iron 35 ug/dL (37-170)
[2024-08-01 10:28] LABS: Free Thyroxine Index 2.9 ug/dL (5.93-13.13); T4 (Thyroxine) 10.4 ug/dl (5.53-11.0); Triiodothryronine (T3) Uptake 28 % (23.5-40.5)
[2024-08-01 10:43] LABS: Thyroid Stimulating Hormone 2.32 uIU/mL (0.465-4.68)
[2024-08-01 18:59] LABS: Total Iron Binding Capacity 415 ug/dL (265-497)
[2024-08-01 19:39] LABS: Vitamin B12 210 pg/mL (239-931)
[2024-08-09 22:13] LABS: 1,25 Dihydroxy Vitamin D 92 pg/mL (.); 1,25-Dihydroxy, Vitamin D-2 <10 pg/mL (.); 1,25-Dihydroxy, Vitamin D-3 92 pg/mL (.)
== END 2024-08-01 23:59 | disposition home or self-care (01) ==
LOC: LAB 08:56
PROVIDERS: PCP Family Medicine; Visit Provider Physician Assistant
DX: I49.3 Ventricular premature depolarization (principal); R06.09 Other forms of dyspnea; R00.2 Palpitations; F41.9 Anxiety disorder, unspecified; R07.89 Other chest pain
CPT/HCPCS: 36415; 82607; 82652; 83540; 83550; 84436; 84443; 84479

== ENCOUNTER 2024-12-29 09:52 | Outpatient (CLI) | payer BC, SELFPAY ==
--- OUTSIDE RECORDS SUMMARY | 2024-06-10 11:00 | XMS_ITS ---
[facility] [address] [facility] [address] [place] [id number] Care Team Providers Care Legal Support Assistant Name Role Phone Rudolph Regalado Primary Care Provider Shahnaz Glaser Unavailable [phone] Allergies No Known Allergies Results Component Value Reference Range Notes Holter Monitor- 48 hour Reviewed date:11/04/2024 01:20:00 PM Interpretation: Performing Lab: Notes/Report: REASON FOR VISIT panic attacks Medications Medication SIG (Take, Route, Fr equency, Duration) Notes Start Date End Date Status Cefdinir 300 MG 1 cap(s) Orally Two times a day; Duration: 7 days 06/10/2024 Active Vital Signs Weight 139.0 lbs 06/10/2024 Blood pressure systolic 110 mm Hg 06/10/20 24 Blood pressure diastolic 64 mm Hg 024 Heart Rate 52 /min 06/10/2024 Height 60 in 06/10/2024 BMI 27.14 kg/m2 06/10/2024 Encounters Encounter Location Date Provider Diagnosis [place] [address] [facility] [address] [place] [id number] 06/10/2024 Shahnaz Glaser Acute UTI N39.0 ; Palpitations R00.2 and Panic attacks F41.0 Assessments Encounter Date Diagnosis (ICD Code) Assessment Notes Treatment Notes Treatment Clinical Notes Section Notes 06/10/2024 Acute UTI (ICD-10 - N39.0) U/A in the ER was abnormal and culture shows greater than 100,000 colony count of gram negative rods. It is still pending. Will start on abx and she will call tomorrow to see if culture is back. 06/10/2024 Palpitations (ICD-10 - R00.2) 06/10/2024 Panic attacks (ICD-10 - F41.0) I am not sure she is actually having panic attacks. Her symptoms appear to be due to infection. Plan Of Treatment Medication Medication Name Sig Start Date Stop Date Notes Cefdinir 300 MG 1 cap(s) Orally Two times a day; Duration: 7 days 06/10/2024 Treatment Notes Assessment Notes Acute UTI U/A in the ER was ab normal and culture shows greater than 100,000 colony count of gram negative rods. It is still pending. Will start on abx and she will call tomorrow to see if culture is back. Panic attacks I am not sure she is actually having panic attacks. Her symptoms appear to be due to infection. Next Appt Details Follow Up: via phone to repo rt test results, Reason: Progress Notes * RUSSELLJOSE DAVID LANDONDOB: 1 (24 yo F)Acc No.[id number]:06/10/2024 Progress Notes Patient: Madelin DANETTELANDON VERDUGO Provider: JULI Sampson :2000 A ge:23 Y S ex:Female Date:06/10/2024 Address:[address] [place], [place] [phone] Pcp:Rudolph Regalado Subjective: * Chief Complaints: * 1 . Panic attacks. * HPI: P sychology: Pt sts she is here today for panic attacks. Pt sts she was seen in the ER after she began having SOA and tachycardia. She states it lasted about 3 hours. They did testing and told her everything was negative and to f/u on panic attacks. * ROS: D ERMATOLOGY: no R caridad. n o H chasidy. G ASTROENTEROLOGY: no N ausea. n o V omiting. U ROLOGY: no D ifficulty urinating. n o B lood in urine. * Medical History: R ight Hip Legg-Calve Perthes Disease, Proteinuria, C1Q nephropathy, followed by Dr. Cleaning, [facility], 08/21/17 Neg UGI, Neg US GB, [facility], 01/14/[address] head/brain. * Hospitalization/Major Diagno stic Procedure: H ER-sprain ankle 10/02/08, [facility] ER- Constipation 06/05/12. * Family History: F ather: alive. M other: alive. 2 sister(s) . . * Social History: C URRENT TOBACCO USE S moking Status: Patient does NOT smoke. C affeine: no. Home smoke detector use: yes. Past smoking status: no, Smoking status: Does not smoke. * Medications: N one * Allergies: N .K.D.A. Objective: * Vitals: W t:139.0, Temp:98.7, BP:110/64, HR:52, Nurse:[facility], Ht: 60, BMI:27.14. * Examination: G eneral Examination: General Appearance: N AD. H EENT: u nremarkable.?Oral cavity: n o lesions, mucosa moist and WNL, no erythema. N ricardo: s upple, no lymphadenopathy. C hest: n ormal shape and expansion. H eart: R SR with frequent ectopics. L ungs: c lear to auscultation. A bdomen: bowel sounds present, soft and nontender, no organomegaly or masses, no guarding or rigidity. N eurologic Exam: I ntact, gait normal. S kin: n ormal, no rash. P eripheral pulses: n ormal (2+) bilaterally. E xtremities: n o leg edema. Assessment: * Assessment: 1. A cute UTI - N39.0 (Primary) 2 . P alpitations - R00.2 3 . P anic attacks - F41.0 Plan: * Treatment: 2. P alpitations I maging: Holter Monitor- 48 hour (Performed Date - 06/20/2024) 3.?Panic attacks? Notes: I am not sure she is actually having panic attacks. Her symptoms appear to be due to infection.?? * Follow Up: v ia phone to report test results * Images: Billing Information: * Visit Code: 74371 Office Visit, Est Pt., Level 4. * Procedure Codes: * Electronic signature of JULI Pryor on 12/29/2024 at 09:55 AM EDT Sign off status: Pending * Provider: JULI Sampson Date: 1 08/11/2023 Generated for Merlin birch/Sal/eTransmitting on: 0 12/29/2024 09:55 AM EDT History and Physical Notes * HPI (History of Present Illness) Category Sub-Category Detail Notes Category Not es Psychology Pt sts she is h ere today for panic attacks. Pt sts she was seen in the ER after she began having SOA and tachycardia. She states it lasted about 3 hours. They did testing and told her everything was negative and to f/u on panic attacks. Examination Category Sub-Category Detail Notes Category Not es General Examination HEENT: unremarkable Heart: RSR with frequent ec topics Lungs: clear to auscultatio n Abdomen: bowel sounds present , soft and nontender, no organomegaly or masses, no guarding or rigidity Extremities: no leg edema General Appearance: NAD Skin: normal, no rash Neurologic Exam: Intact, gait normal Neck: supple, no lymphaden opathy Oral cavity: no lesions, mucosa m oist and WNL, no erythema Peripheral pulses: normal (2+) bilatera lly Chest: normal shape and exp ansion
--- OUTSIDE RECORDS SUMMARY | 2024-06-24 05:30 | XMS_ITS ---
Author Organization [facility] Address [address] [facility] [address] [facility] [address] [place] [id number] Care Team Providers Care Health Care Facility Administrator Name Role Phone Rudolph Regalado Primary Care Provider [phone] Shahnaz Glaser Unavailable [phone] Allergies No Known Allergies Results Component Value Reference Range Notes Urinalysis - Inhouse Reviewed date:06/24/2024 12:20:47 PM Interpretation: Performing Lab: Notes/Report: Color/Clarity yellow/clear Leuk neg Nitrite neg Urobili 3.2 Protein trace pH 7.0 Blood trace-lysed Sp. Gr. 1.020 Ketone neg Bili neg Gluc neg Influenza Screen (in house) Reviewed date:06/24/2024 12:20:10 PM Interpretation:neg Performing Lab: Notes/Report: neg results neg Rapid Strep- Inhouse Reviewed date:06/24/2024 12:19:53 PM Interpretation:neg Performing Lab: Notes/Report: neg strep test neg CBC Fingerstick (in house) Reviewed date:06/24/2024 12:20:32 PM Interpretation: Performing Lab: Notes/Report: wbc 12.7 3.5 - 10 lym 20.9 15 - 50 mid 5.8 2 - 15 gran 73.3 35 - 80 rbc 4.57 3.5 - 5.5 hgb 13.0 11.5 - 16.5 hct 38.3 35 - 55 mcv 83.7 75 - 100 mch 28.5 25 - 35 mchc 34.0 31 - 38 plat 254 100 - 400 P-Culture, Urine Reviewed date:06/27/2024 05:05:04 PM Interpretation: Performing Lab: Notes/Report: Test performed by [facility], [facility] [address] [place] [address] , [address], [place] [address] Alec Kolb MD, Dynamiter CLIA: [id number] Specimen Source Urine - Void Culture, Urine See Below Final Report : No Significant Growth Covid test (in house) Reviewed date:06/24/2024 12:20:20 PM Interpretation:neg Performing Lab: Notes/Report: neg Result: neg Holter - 7 day Reviewed date:11/04/2024 01:24:34 PM Interpretation: Performing Lab: Notes/Report: Reason For Referral Diagnosis 1 SVT (supraventricula r tachycardia) (I47.10) [facility] Referring Provider First Name Shahnaz Referring Provider Last Name Jailyn Referring Provider Speciality Physician Care Director Referred Provider Cardiology, . Referred Provider Specialty Cardiovascul ar Disease General Notes Shahnaz Glaser 06/06 1:01:06 PM > [facility] 06/24/2024 1:05:56 PM > faxed to [facility] Jocelyne Alexis Brynn 06/27/2024 10:14:42 AM > 07/18/2024 at 02:00pm Referral Priority Routine REASON FOR VISIT panic attacks Medications Medication SIG (Take, Route, Frequency, Duration) Notes Start Date End Date Status Cefdinir 300 MG 1 cap(s) Orally Two times a day; Duration: 7 days 06/24/2024 Active Bromfed DM 2-30-10 MG/5ML 5-10 mL Orally four times a day, prn 06/24/2024 Active FLUoxetine HCl 20 MG 1 capsule Orally On ce a day; Duration: 30 day(s) 04/16/2023 Active Vital Signs Weight 143.8 lbs 06/24/2024 Blood pressure systolic 100 mm Hg 06/24/20 24 Blood pressure diastolic 70 mm Hg 024 Heart Rate 106 /min 06/24/2024 Height 60 in 06/24/2024 BMI 28.08 kg/m2 06/24/2024 Encounters Encounter Location Date Provider Diagnosis [facility] [address] [id number] 06/24/2024 Shahnaz Glaser SVT (supraventricula r tachycardia) I47.10 ; Acute URI J06.9 ; Microscopic hematuria R31.29 and Panic attacks F41.0 Assessments Encounter Date Diagnosis (ICD Code) Assessment Notes Treatment Notes Treatment Clinical Notes Section Notes 06/24/2024 SVT (supraventricula r tachycardia) (ICD-10 - I47.10) Holter showed SVT and possible afib. Will get a 7 day monitor and make cardiology referral. 06/24/2024 Acute URI (ICD-10 - J06.9) 06/24/2024 Microscopic hematuria (ICD-10 - R31.29) 06/24/2024 Panic attacks (ICD-10 - F41.0) Plan Of Treatment Medication Medication Name Sig Start Date Stop Date Notes Cefdinir 300 MG 1 cap(s) Orally Two times a day; Duration: 7 days 06/24/2024 Bromfed DM 2-30-10 MG/5ML 5-10 mL Orally four times a day, prn 06/24/2024 FLUoxetine HCl 20 MG 1 capsule Orally On ce a day; Duration: 30 day(s) 04/16/2023 Treatment Notes Assessment Notes SVT (supraventricular tachycardia) Geoffrey r showed SVT and possible afib. Will get a 7 day monitor and make cardiology referral. Referrals Referral Date Details 06/24/2024 06/24/2024, . Cardio logy Next Appt Details Follow Up: via phone to repo rt test results, Reason: Progress Notes * LANDON SHELDONDOB: 1 (24 yo F)Acc No.[id number]:06/24/2024 Progress Notes Patient: LANDON SOUZA Provider: JULI Sampson :2000 A ge:23 Y S ex:Female Date:06/24/2024 Address:[address] [place], [place] [id number] Pcp:Rudolph Regalado Subjective: * Chief Complaints: * 1 . Panic attacks. * HPI: C onstitutional: 23 year old female presents with c/o good days, bad days P t is here today for panic attacks. Pt sts she finished the antibiotic she was given and sts she is unsure if it helped the UTI. Pt sts she is still having panic attacks. Has had a few more since last visit. She did have an episode where her HR was very high and this seemed to cause the panic attack. She would like holter results.. E NT/respiratory: c/o sore throat. c/o cough d ry cough and drainage that started today . c/o nasal congestion P t sts her nose has been stopped up which started today. c/o headache. c/o body aches. Denies : Fever. D enies : ear pain. * ROS: D ERMATOLOGY: no R caridad. n o H chasidy. G ASTROENTEROLOGY: no N ausea. n o V omiting. U ROLOGY: no D ifficulty urinating. n o B lood in urine. * Medical History: R ight Hip Legg-Calve Perthes Disease, Proteinuria, C1Q nephropathy, followed by Dr. Cleaning, [facility], 08/21/17 Neg UGI, Neg US GB, [facility], 01/14/[address] head/brain. * Hospitalization/Major Diagno stic Procedure: [facility] ER-sprain ankle 10/02/08, [facility] ER- Constipation 06/05/12. * Family History: F ather: alive. M other: alive. 2 sister(s) . . * Social History: C URRENT TOBACCO USE S moking Status: Patient does NOT smoke. C affeine: no. Home smoke detector use: yes. Past smoking status: no, Smoking status: Does not smoke. * Medications: N one * Allergies: N .K.D.A. Objective: * Vitals: W t:143.8, Temp:98.6, BP:100/70, HR:106, Nurse:[facility], Ht: 60, BMI:28.08. * Examination: E NT/Respiratory: General Appearance: N AD. E ars: a uditory canals normal bilaterally, TM's WNL. N ose : turbinates red, congested. S inuses : non tender bilaterally. O ral cavity : erythema without exudate on pharynx. N ricardo : n o cervical lymphadenopathy. H eart : R RR, normal S1 S2, no murmurs. L ungs: c lear to auscultation bilaterally. A bdomen : BS present, soft, nontender. P sychology: Grooming : a dequate. E ye contact : n ormal. M ood : p leasant. N eurologic Exam: I ntact, gait normal. Assessment: * Assessment: 1. A cute URI - J06.9 (Primary) 2 . S VT (supraventricular tachycardia) - I47.10 3 . M icroscopic hematuria - R31.29 4 . P anic attacks - F41.0 Plan: * Treatment: Value Reference Range r esults neg * Rubi Gomez 06/24/2024 9:44 :28 AM > Provider reviewed results while patient in office.Shahnaz Glaser 06/24/2024 12:20:08 PM > ?LAB: Rapid Strep- Inhouse (Collection Date & Time - 06/24/2024)?neg* Value Reference Range s trep test neg * Rubi Gomez 06/24/2024 9:44 :47 AM > Provider reviewed results while patient in office.Shahnaz Glaser 06/24/2024 12:19:51 PM > ?LAB: CBC Fingerstick (in house) (Collection Date & Time - 06/24/2024)* Value Reference Range w bc 12.7 3.5 - 10 * l ym 20.9 15 - 50 * m id 5.8 2 - 15 * g ran 73.3 35 - 80 * r bc 4.57 3.5 - 5.5 * h gb 13.0 11.5 - 16.5 * h ct 38.3 35 - 55 * m cv 83.7 75 - 100 * m ch 28.5 25 - 35 * m chc 34.0 31 - 38 * p lat 254 100 - 400 * Rubi Gomez 06/24/2024 10:0 4:56 AM > Provider reviewed results while patient in office.Shahnaz Glaser 06/24/2024 12:20:30 PM > ?LAB: Covid test (in house) (Collection Date & Time - 06/24/2024)?neg* Value Reference Range R esult: neg Rubi Ramirez 06/24/2024 9:53 :23 AM > Provider reviewed results while patient in office.Shahnaz Glaser 06/24/2024 12:20:18 PM > 2.?SVT (supraventricular tachycardia)?Imaging: Holter - 7 day (Performed Date - 06/24/2024)* Shahnaz Glaser 11/04/2024 01 :24:30 PM >see TE Notes: Holter showed SVT and possible afib. Will get a 7 day monitor and make cardiology referral. ? Referral To:. Cardiology??Cardiovascular Disease ?Reason: 3.?Microscopic hematuria?LAB: P-Culture, Urine (Collection Date & Time - 06/24/2024 12:06 PM)* Value Reference Range C ulture, Urine See Below - * S pecimen Source Urine - Void - * JailynShahnaz Cathy 06/27/2024 1 :57:03 PM > Please let pt know this showed no growth. Will need to recheck a U/A in a week.Catrachita Chung 06/27/2024 5:04:46 PM > see duplicat order due to issue w/ [employer] system on 06/25 ?LAB: Urinalysis - Inhouse (Collection Date & Time - 06/24/2024)* Value Reference Range C olor/Clarity yellow/clear * L euk neg * N itrite neg * U robili 3.2 * P rotein trace * p H 7.0 * B lood trace-lysed * S p. Gr. 1.020 * K etone neg * B kelsy neg * G steve neg * Rubi Gomez 06/24/2024 10:0 4:06 AM > Provider reviewed results while patient in office.JailynShahnaz Cathy 06/24/2024 12:20:46 PM > 4.?Panic attacks? Start FLUoxetine HCl Capsule, 20 MG, 1 capsule, Orally, Once a day, 30 day(s), 30 Capsule, Refills 0.?? * Procedure Codes: 8 7804 Flu Test- Nasal Swab, Modifiers: QW , 21570 STREP A ASSAY W/OPTIC, Modifiers: QW , 77039 COVID TEST IN HOUSE, Modifiers: QW , 14623 CAPILLARY BLOOD DRAW, 86807 CBC WITH AUTO DIFF, 03849 Urinalysis, no micro * Follow Up: v ia phone to report test results * Images: Billing Information: * Visit Code: 98691 Office Visit, Est Pt., Level 4. * Procedure Codes: 70736 Flu Test- Nasal Swab. Modifiers: QW 25528 STREP A ASSAY W/OPTIC. Modifiers: QW 14678 COVID TEST IN HOUSE. Modifiers: QW 13369 CAPILLARY BLOOD DRAW. 49963 CBC WITH AUTO DIFF. 14338 Urinalysis, no micro. * Electronic signature of JULI Pryor on 12/29/2024 at 09:55 AM EDT Sign off status: Pending * Provider: JULI Sampson Date: 1 08/25/2023 Generated for Printi ng/Faxing/eTransmitting on: 0 12/29/2024 09:55 AM EDT History and Physical Notes * HPI (History of Present Illness) Category Sub-Category Detail Notes Category Not es ENT/respiratory sore throat ear pain cough dry cough and draina ge that started today Fever headache nasal congestion Pt sts her nose has been stopped up which started today body aches Constitutional good days, bad days Pt is here t goldy for panic attacks. Pt sts she finished the antibiotic she was given and sts she is unsure if it helped the UTI. Pt sts she is still having panic attacks. Has had a few more since last visit. She did have an episode where her HR was very high and this seemed to cause the panic attack. She would like holter results. Examination Category Sub-Category Detail Notes Category Not es ENT/Respiratory Oral cavity : erythema without exudate on pharynx Sinuses : non tender bilateral ly Ears: auditory canals norm al bilaterally, TM's WNL Neck : no cervical lymphade nopathy Heart : RRR, normal S1 S2, n o murmurs Lungs: clear to auscultatio n bilaterally Abdomen : BS present, soft, no ntender General Appearance: NAD Nose : turbinates red, zana ested Psychology Neurologic Exam: Intact, gait normal Grooming : adequate Eye contact : normal Mood : pleasant Consultation Request Notes Referral Date Referring Provider Referred Provider Not es 06/24/2024 Shahnaz Glaser Cardiology, .
--- OUTSIDE RECORDS SUMMARY | 2024-12-21 11:30 | XMS_ITS ---
Author Organization [facility] Address [address] [place] [id number] Care Team Providers Care Faculty Neuropsychologist Name Role Phone Rudolph Regalado Primary Care Provider Shahrammarge Shahnaz Unavailable [phone] Allergies No Known Allergies Results Component Value Reference Range Notes Urinalysis - Inhouse Reviewed date:12/22/2024 04:27:45 PM Interpretation: Performing Lab: Notes/Report: Color/Clarity yellow Leuk neg Nitrite pos Urobili 3.2 Protein 2+ pH 6.5 Blood trace-lysed Sp. Gr. 1.025 Ketone neg Bili neg Gluc neg HCG Urine Qualitative- in ho use Reviewed date:12/22/2024 04:27:45 PM Interpretation:neg Performing Lab: Notes/Report: neg urine hcg neg P-Culture, Urine Reviewed date:12/27/2024 04:09:54 PM Interpretation: Performing Lab: Notes/Report: Test performed by [facility] [address] [place] [address] , [address], [place] [address] Alec Kolb MD, Protective Services Officer CLIA: [id number] Specimen Source Urine - Void Culture, Urine See Below See Microbiol ogy Report Enterobacter cloacae complex 25,000-50,000 CFU/ml Enterobacter cloacae complex Sensitivity Panel See Below ____ Organism E.cloacaec Antibiotic INTERP ____ Amikacin S Ampicillin R Aztreonam S Cefepime S Cefoxitin R Ceftazidime S Ceftriaxone S Ciprofloxacin S Ertapenem S Gentamicin S Levofloxacin S Meropenem S Nitrofurantoin S Piperacillin/Tazo S Tetracycline S Tobramycin S Trimeth/Sulfa S ___ S=SUSCEPTIBLE I=INTERMEDIATE R=RESISTANT Reason For Referral Diagnosis 1 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) Referral Organization [facility] Referring Provider First Name Shahnaz Referring Provider Last Name Jailyn Referring Provider Speciality Physician Beater Room Supervisor Referred Provider Specialty Orthopedic S urgery General Notes Cynthia Casanova 2024 08:53:40 AM > 12/29/2024 at 10:30am; needs to arrive 30 minutes early at outpatient registration for Jocelyne lam Brynn 12/22/2024 10:11:07 AM > patient informed Referral Priority Routine REASON FOR VISIT Discuss Issues Medications Medication SIG (Take, Route, Fr equency, Duration) Notes Start Date End Date Status dilTIAZem HCl ER 240 MG 1 tablet Orally Once a day Active Cefdinir 300 MG 1 cap(s) Orally Two times a day; Duration: 7 days 12/21/2024 Active Vital Signs Weight 147.2 lbs 12/21/2024 Blood pressure systolic 100 mm Hg 12/22/19 25 Blood pressure diastolic 60 mm Hg 025 Heart Rate 104 /min 12/21/2024 Height 60 in 12/21/2024 BMI 28.74 kg/m2 12/21/2024 Encounters Encounter [facility] Date [facility] [address] [place] [id number] 12/21/2024 Shahnaz Crowdy Dysuria R30.0 and Dora venile osteochondrosis of head of right femur M91.11 Assessments Encounter Date Diagnosis (ICD Code) Assessment Notes Treatment Notes Treatment Clinical Notes Section Notes 12/21/2024 Dysuria (ICD-10 - R30.0) 12/21/2024 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 Discuss Issues. * HPI: H PI: 24 year old female presents with c/o Patient is here today for?Pt sts she is here today having issues with her hip disease. She used to see ortho at [facility] but needs a new referral to ortho.. U rology: c/o Pressure. Denies : frequent urination. D enies : burning sensation.? * ROS: D ERMATOLOGY: no R caridad. n o H chasidy. G ASTROENTEROLOGY: no N ausea. n o V omiting. U ROLOGY: no D ifficulty urinating. n o B lood in urine. * Medical History: R ight Hip Legg-Calve Perthes Disease, Proteinuria, C1Q nephropathy, followed by Dr. Cleaning, [facility], 08/21/17 Neg UGI, Neg US GB, [facility], 01/14/[address] head/brain. * Hospitalization/Major Diagno stic Procedure: [facility] ER-sprain ankle 3/30/09, [facility] ER- Constipation 06/05/12. * Family History: F ather: alive. M other: alive. 2 sister(s) . . * Social History: C URRENT TOBACCO USE S moking Status: Patient does NOT smoke. C affeine: no. Home smoke detector use: yes. Past smoking status: no, Smoking status: Does not smoke. * Medications: T aking dilTIAZem HCl ER 240 MG Tablet Extended Release 24 Hour 1 tablet Orally Once a day , Medication List reviewed and reconciled with the patient * Allergies: N .K.D.A. Objective: * Vitals: W t: 147.2, Temp: 98.7, BP: 100/60, HR: 104, Nurse: alon, Ht: 60, BMI:28.74. * Examination: G eneral Examination: General Appearance: N AD. H EENT: u nremarkable.?Oral cavity: n o lesions, mucosa moist and WNL, no erythema. N ricardo: s upple, no lymphadenopathy. C hest: n ormal shape and expansion. H eart: R SR. L ungs: c lear to auscultation. N eurologic Exam: I ntact, gait normal. S kin: n ormal, no rash.?Peripheral pulses: n ormal (2+) bilaterally. E xtremities: n o leg edema, there is pain with internal and external rotation of the right hip. Assessment: * Assessment: 1. D ysuria - R30.0 (Primary) 2 . J uvenile osteochondrosis of head of right femur - M91.11 Plan: * Treatment: Value Reference Range C ulture, Urine See Below - * S pecimen Source Urine - Void - * S ensitivity Panel See Below - * E nterobacter cloacae complex 25,000-50,000 CFU/ml Enterobacter cloaca e complex - * Shahnaz Glaser 12/27/2024 1 2:58:42 AM EDT >Please let patient know she does have a UTI and cefdinir should cover itRosa Levi 12/27/2024 04:09:44 PM EDT > Pt informed ?LAB: Urinalysis - Inhouse (Collection Date & Time - 12/21/2024)* Value Reference Range C olor/Clarity yellow * L euk neg * N itrite pos * U robili 3.2 * P rotein 2+ * p H 6.5 * B lood trace-lysed * S p. Gr. 1.025 * K etone neg * B kelsy neg * G steve neg * Rubi Gomez 12/21/2024 03:4 9:12 PM EDT > Provider reviewed results while patient in office. ?LAB: HCG Urine Qualitative- in house (Collection Date & Time - 12/21/2024)? neg* Value Reference Range u rine hcg neg * Rubi Gomez 12/21/2024 04:1 0:58 PM EDT > Provider reviewed results while patient in office. 2.?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? Referral To:Orthopedic Surgery ?Reason: * Procedure Codes: 8 1002 Urinalysis, no micro * Follow Up: v ia phone to report test results * Images: Billing Information: * Visit Code: 09789 Office Visit, Est Pt., Level 3. * Procedure Codes: 52477 Urinalysis, no micro. * Electronic signature of JULI Pryor on 12/29/2024 at 09:55 AM EDT Sign off status: Pending * Provider: JULI Sampson Date: 0 12/21/2024 Generated for Merlin ng/Fabarbarag/eTransmitting on: 12/29/2024 09:55 AM EDT History and Physical Notes * HPI (History of Present Illness) Category Sub-Category Detail Notes Category Not es Urology frequent urination burning sensation Pressure HPI Patient is here today for Pt sts she is here today having issues with her hip disease. She used to see ortho at [facility] but needs a new referral to ortho. Examination Category Sub-Category Detail Notes Category Not es General Examination HEENT: unremarkable Heart: RSR Lungs: clear to auscultatio n Extremities: no leg edema, there is pain with internal and external rotation of the right hip General Appearance: NAD Skin: normal, no rash Neurologic Exam: Intact, gait normal Neck: supple, no lymphaden opathy Oral cavity: no lesions, mucosa m oist and WNL, no erythema Peripheral pulses: normal (2+) bilatera lly Chest: normal shape and exp ansion Consultation Request Notes Referral Date Referring Provider Referred Provider Not es 12/21/2024 Shahnaz Glaser ,
--- NOTE | 2024-12-29 09:55 | XR_ITS ---
FINAL REPORT CLINICAL HISTORY: legg-calve- perthes disease, increased pain since giving 2 yrs ago FINDINGS: RIGHT FEMUR Two views were obtained. There is no fracture or dislocation. There is chronic flattening of the femoral head with shortening of the femoral neck. Findings are consistent with chronic sequela of Legg calf Perthes disease. There is no significant degenerative change at this time. IMPRESSION: Findings consistent with chronic sequela of Legg calf Perthes disease. Reviewed, Interpreted and Dictated by Heidi Tapia MD Transcribed by Anabela Moya Authenticated and [facility]
--- OUTSIDE RECORDS SUMMARY | 2024-12-29 09:56 | XMS_ITS | Patient Health Record ---
Author Organization [facility] Address [address] [facility] [address] [place], [place] [address] Care Team Providers Care Grain Elevator Operator Name Role Phone Rudolph Regalado Primary Care Provider Shahnaz Glaser Unavailable [phone] Allergies No Known Allergies Results Component Value Reference Range Notes Holter Monitor- 48 hour Reviewed date:11/04/2024 01:20:00 PM Interpretation: Performing Lab: Notes/Report: P-Culture, Urine Reviewed date:06/27/2024 05:05:04 PM Interpretation: Performing Lab: Notes/Report: Test performed by [facility] [address] [place] [address] , [address], [place] [address] Alec Kolb MD, Slip Cover Seamstress CLIA: [id number] Specimen Source Urine - Void Culture, Urine See Below Final Report : No Significant Growth Urinalysis - Inhouse Reviewed date:12/22/2024 04:27:45 PM [...] Interpretation: Performing Lab: Notes/Report: Test performed by [facility] [address] [place] [address] , [address], [place] [address] Alec Kolb MD, Slip Cover Seamstress CLIA: [id number] Specimen Source Urine - Void Culture, Urine [...] S Trimeth/Sulfa S ___ S=SUSCEPTIBLE I=INTERMEDIATE R=RESISTANT P-Culture, Urine Reviewed date:06/28/2024 11:06:24 AM Interpretation: Performing Lab: Notes/Report: Test performed by [facility], [address] , [place] [address] Alec Kolb MD, Slip Cover Seamstress CLIA: [id number] Specimen Source Urine - Void Culture, Urine See Below Final Report : No growth Urinalysis - Inhouse Reviewed date:06/24/2024 12:20:47 PM [...] - 38 plat 254 100 - 400 Covid test (in house) Reviewed date:06/24/2024 12:20:20 PM Interpretation:neg Performing Lab: Notes/Report: neg Result: neg Holter - 7 day Reviewed date:11/04/2024 01:24:34 PM Interpretation: Performing Lab: Notes/Report: Medications Medication SIG (Take, Route, Fr equency, Duration) Notes Start Date End Date Status dilTIAZem HCl ER 240 MG 1 tablet Orally Once a day Active Cefdinir 300 MG 1 cap(s) Orally Two times a day; Duration: 7 days 12/21/2024 Active Immunizations Vaccine Route Administration Date Status Comme nts COVID 19 [place] Unknown 04/30/2021 Administered Hep A- Pediatric Unknown 07/11/2019 Administered Hepatitis A (adult) IM Intramuscular 02/09/2018 Administer ed Hepatitis A (adult) IM Intramuscular 07/11/2019 Administer ed HEPB VACC PED/ADOL DOSE IM IM Intramuscular 2000 Adm inistered HEPB VACC PED/ADOL DOSE IM IM Intramuscular 01/28/2001 Adm inistered HEPB VACC PED/ADOL DOSE IM IM Intramuscular 09/27/2002 Adm inistered HIB IM Intramuscular 01/28/2001 Administered HIB IM Intramuscular 07/21/2001 Administered HIB IM Intramuscular 09/27/2002 Administered IPV IM Intramuscular 01/28/2001 Administered IPV IM Intramuscular 07/21/2001 Administered IPV IM Intramuscular 11/17/2001 Administered IPV IM Intramuscular 01/09/2005 Administered Menactra IM Intramuscular 03/22/2012 Administered Menactra IM Intramuscular 02/09/2018 Administered MMR IM Intramuscular 09/27/2002 Administered MMR IM Intramuscular 01/09/2005 Administered Tetanus Dtap-Daptacel (under 7yrs) IM Intramuscular 01/28/2001 Administered Tetanus Dtap-Daptacel (under 7yrs) IM Intramuscular 07/21/2001 Administered Tetanus Dtap-Daptacel (under 7yrs) IM Intramuscular 11/17/2001 Administered Tetanus Dtap-Daptacel (under 7yrs) IM Intramuscular 09/27/2002 Administered Tetanus Dtap-Daptacel (under 7yrs) IM Intramuscular 01/09/2005 Administered Tetanus Tdap-Adacel (over 7yrs) IM Intramuscular 03/22/2012 Administered Tetanus Tdap-Adacel (over 7yrs) Unknown 10/29/2022 Administered Problems Problem Type SNOMED Code ICD Code Onset Dates Problem Status W/U Status Risk Notes Problem Vitamin D deficiency (89639506) Vitamin D deficiency (E55.9) Active confirmed Problem Constipation (22888000) Constipation (K59.00) Active confirmed Problem Insomnia (754576128) Insomnia due to medical condition (G47.01) Active confirmed Problem Panic disorder (632707997) Panic attacks (F41.0) Active confirmed Problem New daily persistent headache (550370221331620 ) New daily persistent headache (G44.52) Active confirmed Problem Leukocytosis (556981325) Leukocytosis, unspecified type (D72.829) Active confirmed Problem Disorder of urinary bladder (59101297) Bladder disease (N32.9) Active confirmed Problem Cyclical vomiting syndrome (29431336) Non-intractable cyclical vomiting with nausea (G43.A0) Active confirmed Problem Panic attack (215078634) Panic attack (F41.0) Active confirmed Problem Low back pain (657779988) Midline low back pain without sciatica, unspecified chronicity (M54.5) Active confirmed Problem 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 Problem Anxiety attack (228831687) Anxiety attack (F41.0) Active confirmed Vital Signs Heart Rate 104 /min 12/21/2024 Blood pressure diastolic 60 mm Hg 12/21/2024 Height 60 in 12/21/2024 Blood pressure systolic 100 mm Hg 12/21/2024 Weight 147.2 lbs 12/21/2024 BMI 28.74 kg/m2 12/21/2024 Encounters Encounter Location Date Provider Diagnosis [facility] [address] [place] [id number] 06/10/2024 Shahnaz Glaser Acute UTI N39.0 ; Palpitations R00.2 and Panic attacks F41.0 [facility] [address] [place] [id number] 06/24/2024 Shahnaz Crowmarge SVT (supraventricula r tachycardia) I47.10 ; Acute URI J06.9 ; Microscopic hematuria R31.29 and Panic attacks F41.0 [facility] [address] [place] [id number] 12/21/2024 Shahnazlalo Glaser Dysuria R30.0 and 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 M91.11 [facility] [address] [place], [place] [id number] 06/13/2024 Shahnaz Crowmarge [place] [address] [place], [place] [id number] 06/20/2024 [facility] [address] [place] [id number] 07/14/2024 Rudolph Regalado [place] [address] [place] [id number] 11/04/2024 Shahnaz Glaser Assessments Encounter Date Diagnosis (ICD Code) Assessment Notes Treatment Notes Treatment Clinical Notes Section Notes 06/10/2024 Palpitations (ICD-10 - R00.2) 06/10/2024 Acute UTI (ICD-10 - N39.0) U/A in the ER was abnormal and culture shows greater than 100,000 colony count of gram negative rods. It is still pending. Will start on abx and she will call tomorrow to see if culture is back. 06/24/2024 Acute URI (ICD-10 - J06.9) 06/24/2024 SVT (supraventricular tachycardia) (ICD-10 - I47.10) Holter showed SVT and possible afib. Will get a 7 day monitor and make cardiology referral. 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 Her symptoms appear to be due to infection. 06/24/2024 Panic attacks (ICD-10 - F41.0) Plan Of Treatment No Information Insurance Providers Payer Name Payer Address Payer Phone Subscriber Number Group Number Insured Name Patient Relationship to Insured Coverage Start Date Coverage End Date FOR[facility]LY [facility] [employer] [address] [place] [address] [id number] LANDON SHELDON Self - patient is the insured Medications Administered Medication Instructions Date of Administration Dosage Notes rocephin one gram IM 07/07/2012 1 gram Medical (General) History Medical History History ICD Code Right Hip Legg-Calve Perthes Disease Proteinuria C1Q nephropathy, followed by Dr. Lakeshia birch, [facility] 08/21/17 Neg UGI, Neg US GB, [facility] 01/14/[address] head/brain Surgical History Surgery Date(Month/Year) Hospitalization History Reason Date(Month/Year) [facility] ER- Constipation 06/05/12 [facility] ER-sprain ankle 10/02/08
== END 2024-12-29 23:59 | disposition home or self-care (01) ==
LOC: RAD 09:54
PROVIDERS: PCP Family Medicine; Visit Provider Physician Assistant
DX: M91.12 Juvenile osteochondrosis of head of femur [Legg-Calve-Perthes], left leg (principal)
CPT/HCPCS: 73552

== ENCOUNTER 2025-03-01 13:00 | Outpatient (RCR) | payer BC, SELFPAY | END 2025-03-01 23:59 | disposition home or self-care (01) | LOC: PT.CARL 13:00 | PROVIDERS: PCP Family Medicine; Visit Provider Orthopaedic Surgery | DX: M25.551 Pain in right hip (principal) | CPT/HCPCS: 97110; 97161 ==

== ENCOUNTER 2025-03-29 16:00 | Outpatient (RCR) | payer BC, SELFPAY | END 2025-04-04 10:44 | disposition home or self-care (01) | LOC: PT.CARL 16:00 | PROVIDERS: PCP Family Medicine; Visit Provider Orthopaedic Surgery | DX: M25.551 Pain in right hip (principal) | CPT/HCPCS: 97110; 97112; 97530 ==

== ENCOUNTER 2025-05-10 10:16 | Outpatient (CLI) | payer BC, SELFPAY ==
--- OUTSIDE RECORDS SUMMARY | 2025-05-10 10:30 | XMS_ITS | Clinical Summary ---
Author Organization [facility] Address [address] 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 - Will f/u with Peds Nephrology in a 1yr then will transfer care to Adult Nephro after that. Chronic bilateral low back pain without sciatica 02/06/2021 Assessment & Plan (02/06/2021 6:52 PM EDT): - Chronic back pain, has been present for over 1yr. Seems to be MSK-related since hurts more with deeper breathing and when working. - Recommended going to with [facility] for imaging if continues since she is already established there for her Ulqh-Wopcd-Gdcyyxb. Zano-Yxrra-Huiletd disease Resolved Problems Problem Noted Date Diagnosed Date Resolved Date Recurrent UTI 02/06/2021 03/26/2025 Assessment & Plan (02/06/2021 6:54 PM EDT): - No abc prophylaxis since etiology of UTIs was identified. - Educated on sexual health hygiene to prevent future UTIs. Family History Medical History Relation Name Comments Diabetes Maternal Grandmother Hypertension Maternal Grandmother Stroke Maternal Grandmother Diabetes Mother Heart disease Mother Hypertension Mother Stroke Mother Diabetes Paternal Grandmother Hypertension Paternal Grandmother Stroke Paternal Grandmother Relation Name Status Comments Maternal Grandmother Mother Paternal Grandmother Social History Tobacco Use Types Packs/Day Years Used Date Smoking Tobacco: Never Passive Smoke Exposure: Yes Smokeless Tobacco: Never Tobacco Cessation:Counseling Given: Not Answered Comments No Sex and Gender Information Value Date Recorded Sex Assigned at Not on file Legal Sex Female 6:27 PM EDT Gender Identity Not on file Sexual Orientation Not on file Last Filed Vital Signs Vital Sign Reading Time Taken Comments Blood Pressure 113/75 01/31/2025 10:17 AM EDT Pulse 80 01/31/2025 10:17 AM EDT Temperature 36.7 C (98 F) 02/06/2021 10:24 AM EDT Respiratory Rate 18 01/31/2025 10:17 AM EDT Oxygen Saturation 97% 01/31/2025 10:17 AM EDT Inhaled Oxygen Concentration - - Weight 55.3 kg (122 lb) 01/31/2025 10:17 AM EDT Height 152.4 cm (5') 01/31/2025 10:17 AM EDT Body Mass Index 23.83 01/31/2025 10:17 AM EDT Plan of Treatment Health Maintenance Due Date Last Done Comments [facility]-Depression Screening 2000 [facility]-HIV Screening 2000 [facility]-Hepatitis C Screening 2000 [facility]-/Child/Adol SDOH Screenings 2000 [facility]-Varicella Vaccines (1 of 2 - 13+ 2-dose series) 2013 HPV Vaccines (1 - 3-dose series) 11/19/2015 [facility]- SDOH Screenings 2018 [facility]-Adult SDOH Screenings 2018 [facility]-Pap Smear 2021 [facility]-DTaP,Tdap,and Td Vaccines (2 - Td or Tdap) 03/22/2022 03/22/2012 ULD-SILQW-09 Vaccine (2 - 2024- season) 2025 04/30/2021 [facility]-Influenza Vaccine (#1) 2025 [facility]-Zoster Vaccines (1 of 2) 2050 [facility]-HIB Vaccines Completed 09/27/2002, , 01/28/2001 [facility]-Hepatitis B Vaccines Completed 003, 01/28/2001, 2000 [facility]-IPV Vaccines Completed 01/09/2005, , 07/21/2001, Additional history exists [facility]-Hepatitis A Vaccines Completed 07/11/2019, 01/2018 [facility]-Pneumococcal Vaccine: Pediatrics (0 to 5 Years) and At-Risk Patients (6 to 49 Years) Aged Out No longer eligible based on patient's age to complete this topic [facility]-Rotavirus Vaccines Aged Out No lo nger eligible based on patient's age to complete this topic Insurance ANTHEM Care Teams Soup Mixer Relationship Specialty Start Date End Date Yves Regalado MD [address] [place], [place] [address] PCP - General 11/16/20
--- OUTSIDE RECORDS SUMMARY | 2025-05-10 10:30 | XMS_ITS | Encounter Summary ---
Author Organization Healthcare Address [address] [place] [address] Care Team Providers Care Hospital Cook Name Role Phone Yves Regalado MD Primary Care Provider [phone] Encounter Details Date Type Department Care Team (Late st Contact Info) Description 12/29/2024 Orders Only External Location [address] [place] [address] [facility] [place] [address] Social History Tobacco Use Types Packs/Day Years Used Date Smoking Tobacco: Passive Smo ke Exposure - Never Smoker Smokeless Tobacco: Never Comments Unknown Sex and Gender Information Value Date Recorded Sex Assigned at Not on file Legal Sex Female 6:27 PM EDT Gender Identity Not on file Sexual Orientation Not on file documented as of this encounter Plan of Treatment Not on file documented as of this encounter Procedures Procedure Name Priority Date/Time Associated Diagnosis Comments XR OUTSIDE IMAGES 12/29/2024 9:58 AM EDT documented in this encounter Results * XR OUTSIDE IMAGES (12/29/2024 9:58 AM EDT) Anatomical Region Laterality Modality Radiographic Marta ging 12/29/2024 9:58 AM EDT us [facility] DICKENS XR PROCEDURES Final Resul t documented in this encounter Visit Diagnoses Not on filedocumented in this encounter Additional Health Concerns Assessment Noted Time A fall risk assessment has been complete d for the patient 03/13/2022 9:22 AM EDT documented as of this encounter Care Teams Hospital Cook Relationship Specialty Start Date End Date Yves Regalado MD [address] [place] [address] PCP - General 11/16/20 documented as of this encounter
--- OUTSIDE RECORDS SUMMARY | 2025-05-10 10:30 | XMS_ITS | Encounter Summary ---
Author Organization [facility] Address [address] 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 Ant Fish DO [address] [place] [address] Phone: tel: fax: Kris Villeda MD [address] [address] Phone: tel: fax: Referral ID Status Reason Start Date Expiration Date Visits Re quested Visits Authorized [id number] Closed 12/31/2024 07/02/2026 1 1 Encounter Details Date Type Department Care Team (Latest Contact Info) Description 12/31/2024 Community [facility] [address] [place] [address] Ant Fish DO [address] [place] [id number] 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 (Primary Dx) Social History Tobacco Use Types Packs/Day Years Used Date Smoking Tobacco: Passive Smo ke Exposure - Never Smoker Smokeless Tobacco: Never Comments Unknown Sex and Gender Information Value Date Recorded Sex Assigned at Not on file Legal Sex Female 6:27 PM EDT Gender Identity Not on file Sexual Orientation Not on file documented as of this encounter Plan of Treatment Scheduled Referrals Name Type Priority Associated Diagnoses Orde r Schedule Ambulatory referral to Orthopaedics Joint Reconstruction Outpatient Referral Routine 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
== END 2025-05-10 23:59 | disposition home or self-care (01) ==
LOC: RT 10:17
PROVIDERS: PCP Family Medicine; Visit Provider Physician Assistant
DX: I49.1 Atrial premature depolarization (principal); I47.19 Other supraventricular tachycardia; I49.3 Ventricular premature depolarization
CPT/HCPCS: 93270